=== PATIENT | female | born 1970 | race Caucasian/White ===

== ENCOUNTER 2017-03-22 16:44 | Emergency (ER) | payer MEDICARE, MEDICAID ==
--- NOTE | 2017-03-22 19:10 | ED Physician Documentation ---
PD HPI FEMALE - Stated complaint Stated Complaint: FEMALE - Chief complaint Chief Complaint: Abd Pain - History obtained from History obtained from: Patient - History of Present Illness Timing - onset: How many months ago (1) Timing - duration: Months (1) Pain level max: 0 Pain level max: 0 Associated symptoms: No: Fever, Vaginal bleeding Contributing factors: No: , Sexually active - Additional information Additional information: states vaginal itching for the past month. states foul odor recently. no vaginal discharge noted, but her underwear has been wet. no pain. Not sexually active for past 5 years. vaseline made it worse. 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 HEENT: Tonsil/Adenoidectomy - Present Medications Home Medications: Ambulatory Orders Medication Instructions Recorded Confirmed Zolpidem [Ambien] 5 mg PO HS 10/08/13 03/22/17 Eletriptan HBr [Relpax] 20 mg PO DAILY PRN #10 tablet 07/31/15 03/22/17 Metronidazole [Flagyl] 500 mg PO BID 7 Days 03/22/17 Nystatin 1 applic TP BID 14 Days 03/22/17 - Allergies Allergies/Adverse Reactions: Allergies Allergy/AdvReac Type Severity Reaction Status Date / Time No Known Drug Allergies Allergy Verified 03/22/17 16:53 - Social History Does the pt smoke?: No Smoking Status: Former smoker Does the pt drink ETOH?: No Does the pt have substance abuse?: No - Immunizations Immunizations are current?: Yes - POLST Patient has POLST: No PD ED PE NORMAL - Vitals Vital signs reviewed: Yes - General General: Alert and oriented X 3, No acute distress, Well developed/nourished - HEENT HEENT: PERRL, Moist mucous membranes - Neck Neck: Supple, no meningeal sign - Cardiac Cardiac: RRR, Strong equal pulses - Respiratory Respiratory: No respiratory distress, Clear bilaterally - Abdomen Abdomen: Soft, Non tender, Non distended, Other (multiple red, lesions in the skin folds of the L groin and pannus.white dischage. Satellite lesions present. 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 No adnexal tenderness. No masses. No purulent discharge) - Derm Derm: Warm and dry - Neuro Neuro: Alert and oriented X 3 - Psych Psych: Normal mood, Normal affect Results - Vitals Vitals: Vital Signs - 24 hr 03/22/17 03/22/17 16:50 19:41 Temperature 36.3 C L 36.4 C L Heart Rate 66 64 Respiratory 16 15 Rate Blood Pressure 153/100 H 148/84 H O2 Saturation 99 98 Oxygen O2 Source Room air - Labs Labs: Microbiology 03/22/17 19:25 Wet Prep - Final Genital - Vaginal 03/22/17 19:25 ERIC Preparation - Final Fluid - Vaginal Laboratory Tests 03/22/17 18:50 Urine Color YELLOW Urine Clarity CLOUDY Urine pH 7.0 Ur Specific [place] 1.015 Urine Protein NEGATIVE Urine Glucose (UA) NEGATIVE Urine Ketones TRACE Urine Occult Blood NEGATIVE Urine Nitrite NEGATIVE Urine Bilirubin NEGATIVE Urine Urobilinogen 1 (NORMAL) Ur Leukocyte Esterase NEGATIVE Urine RBC None Seen Urine WBC 0-3 Ur Squamous Epith Cells MOD Squamous H Amorphous Sediment Marked Urine Bacteria None Seen Ur Microscopic Review INDICATED Urine Culture Comments NOT INDICATED PD MEDICAL DECISION MAKING - ED course Complexity details: reviewed results, re-evaluated patient, considered differential, d/w patient ED course: Patient is a 47-year-old female who presents to the emergency department with what appears to be a candidal infection of her skin as well as a trichomonas vaginitis. Gonorrhea and Chlamydia testing was also sent. She was started on Flagyl and will place on nystatin powder at home as well. She is well-appearing , nontoxic. Afebrile. No evidence of PID. Patient counseled regarding signs and symptoms for which I believe and urgent re-evaluation would be necessary. Patient with good understanding of and agreement to plan and is comfortable going home at this time This document was made in part using voice recognition software. While efforts are made to proofread this document, sound alike and grammatical errors may occur. Departure - Departure Disposition: 01 Home, Self Care Clinical Impression: Trichomonas infection, Quynh infection of flexural skin Condition: Good Instructions: ED Candidiasis Cutaneous, ED Vaginitis Trichomonas Follow-Up: Bobo Ramirez DO [Primary Care Provider] - Within 1 week Prescriptions: Metronidazole [Flagyl] 500 mg PO BID 7 Days Nystatin 1 applic TP BID 14 Days Comments: Take all antibiotics until gone. Return if you worsen. Your blood pressure was elevated today on check in to the emergency department. This does not mean that you have hypertension, it is a common phenomenon to check into the emergency department and have elevated blood pressure. I recommend that you see your primary care physician within the week to have it rechecked when you're feeling better. Discharge Date/Time: 03/22/17 20:21
[2017-03-22 19:11] LABS: BILIRUBIN,URINE NEGATIVE (NEGATIVE)
[2017-03-22 19:15] LABS: UA w/ MICROSCOPIC CHARGE YES
[2017-03-22 19:17] LABS: UR CULTURE IF IND NOT INDICATED; WBC,URINE 0-3 /HPF (0-5)
[2017-03-22 19:41] VITALS: BP 148/84
[2017-03-22] MEDS ORDERED: metroNIDAZOLE 250 MG TABLET PO STA (20:09)
[2017-03-22] MEDS ORDERED: metroNIDAZOLE 250 MG TABLET PO ONE (20:16)
== END 2017-03-22 20:21 | disposition home or self-care (01) ==
LOC: ED 16:44
DX: A59.01 Trichomonal vulvovaginitis (principal); B37.2 Candidiasis of skin and nail; Z87.891 Personal history of nicotine dependence
CPT/HCPCS: 81001; 87210; 87220; 87491; 87591; 99283; A9270; 81003; 87086

== ENCOUNTER 2017-05-30 15:46 | Outpatient (CLI) | payer MEDICARE, MEDICAID ==
--- NOTE | 2017-05-31 12:56 | Mammography Report ---
DIGITAL SCREENING MAMMOGRAM: 05/30/2017 CLINICAL INDICATION: A 47-year-old for screening. COMPARISON: 09/2011 TECHNIQUE: Routine CC and MLO projections were obtained of the breasts. FINDINGS: The breasts demonstrate fatty replacement bilaterally. Coarse, typically benign calcifica tions are present. No suspicious masses, clustered microcalcifications, or regions of architectural distortion are identified. IMPRESSION: BENIGN FINDINGS. RECOMMENDATION: Routine annual screening unless otherwise clinically indicated. BIRADS CATEGORY 2 - BENIGN FINDINGS. STANDARD QUALIFYING STATEMENTS 1. This examination was reviewed with the aid of Computer-Aided Detection (CAD). 2. A negative or benign imaging report should not delay biopsy if clinically suspicious findings are present. Consider surgical consultation if warranted. More than 5% of cancers are not identified by i maging. 3. Dense breasts may obscure an underlying neoplasm. JOB #: [id number] EXT JOB #:[id number]
== END 2017-05-30 15:47 | disposition home or self-care (01) ==
LOC: DI.N 15:46
PROVIDERS: ATTEND Physician Assistant
DX: Z12.31 Encounter for screening mammogram for malignant neoplasm of breast (principal)
CPT/HCPCS: 77067

== ENCOUNTER 2017-08-15 09:26 | Emergency (ER) | payer MEDICARE, MEDICAID ==
--- NOTE | 2017-08-15 10:24 | ED Physician Documentation ---
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 HEENT: Tonsil/Adenoidectomy - Present Medications Home Medications: Ambulatory Orders Medication Instructions Recorded Confirmed Zolpidem [Ambien] 5 mg PO HS 10/08/13 08/15/17 Eletriptan HBr [Relpax] 20 mg PO DAILY PRN #10 tablet 07/31/15 08/15/17 Gabapentin 300 mg PO BID 08/15/17 08/15/17 Meloxicam 7.5 mg PO DAILY 08/15/17 08/15/17 - Allergies Allergies/Adverse Reactions: Allergies Allergy/AdvReac Type Severity Reaction Status Date / Time No Known Drug Allergies Allergy Verified 03/22/17 16:53 - Social History Does the pt smoke?: No Smoking Status: Never smoker Does the pt drink ETOH?: No Does the pt have substance abuse?: No - Immunizations Immunizations are current?: Yes - POLST Patient has POLST: No PD ED PE NORMAL - Vitals Vital signs reviewed: Yes - Extremities Extremities: Other (L elbow s deformity, mod TTP olecranon and jessica epicondyles, able to range but painful, MSV intact) Results - Vitals Vitals: Vital Signs - 24 hr 08/15/17 09:31 Temperature 36.7 C Heart Rate 78 Respiratory 18 Rate Blood Pressure 148/89 H O2 Saturation 97 Oxygen O2 Source Room air - Rads (name of study) elbow Radiology: See rad report (neg) Departure - Departure Disposition: Home, Self Care Clinical Impression: Left elbow contusion Qualifiers: Encounter type: initial encounter Qualified Code(s): S50.02XA - Contusion of left elbow, initial encounter Condition: Good Instructions: ED Contusion Elbow Comments: The xray is fine - no fracture. It is safe yo use you elbow Recommend tylenol and motrin as needed
--- NOTE | 2017-08-15 10:46 | XRAY Report ---
EXAM: LEFT ELBOW RADIOGRAPHY EXAM DATE: 08/15/2017 10:05 AM. CLINICAL HISTORY: Left elbow pain. Injury from fall. COMPARISON: None. TECHNIQUE: 4 views. FINDINGS: Bones: No fracture or bone lesion. Joints: No subluxation or joint effusion. Joint spaces are preserved. Soft Tissues: No focal abnormality identified. IMPRESSION: 1. No fracture or bony malalignment. [facility] Referring Provider Line: [phone] SITE ID: [id number]
--- NOTE | 2017-08-15 10:46 | XRAY Preliminary Report ---
Exam: XR ELBOW 3 VIEW LT IMPRESSION: 1. No fracture or bony malalignment. [facility] SITE ID: [id number]
[2017-08-15 11:16] VITALS: BP 138/92
== END 2017-08-15 11:15 | disposition home or self-care (01) ==
LOC: ED 09:26
DX: S50.02XA Contusion of left elbow, initial encounter (principal); W01.0XXA Fall on same level from slipping, tripping and stumbling without subsequent striking against object, initial encounter
CPT/HCPCS: 99283

== ENCOUNTER 2017-12-12 15:01 | Emergency (ER) | payer MEDICARE, MEDICAID ==
--- NOTE | 2017-12-12 15:30 | ED Physician Documentation ---
PD HPI HEADACHE - Stated complaint Stated Complaint: FALL/HEAD PAIN - Chief complaint Chief Complaint: Trauma Hd/Nk - History obtained from History obtained from: Patient - History of Present Illness Timing - onset: How many weeks ago (2) Worst headache ever?: Worst headache ever? (no) Location: Back Quality: Aching Associated symptoms: Nausea. No: Fever, Vomiting, Weakness, Numbness, Vision changes Contributing factors: Trauma (Fell backwards 2 weeks ago, hitting her head on the floor.) - Additional information Additional information: The patient is a 47-year-old female who presents with occipital headache, nausea , and fatigue. 2 weeks ago she fell backwards, hitting her head on the floor in a grocery store. She denies loss of consciousness, but has had tolerable occipital headache since that time. She had no nausea, until today. Today she has experienced nausea, increased headache, and fatigue. She denies fever, visual change, numbness or weakness. She denies history of similar symptoms in the past. Review of her medical record reveals past history of migraine headaches. Review of Systems Constitutional: reports: Fatigue. denies: Fever Eyes: denies: Decreased vision Ears: denies: Tinnitus/ringing Nose: denies: Congestion Throat: denies: Sore throat Cardiac: denies: Chest pain / pressure Respiratory: denies: Dyspnea, Cough GI: reports: Nausea. denies: Abdominal Pain, Vomiting, Diarrhea : denies: Dysuria Skin: denies: Rash Musculoskeletal: reports: Neck pain. denies: Extremity pain Neurologic: reports: Headache. 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 HEENT: Tonsil/Adenoidectomy - Present Medications Home Medications: Ambulatory Orders Medication Instructions Recorded Confirmed Zolpidem [Ambien] 5 mg PO HS 10/08/13 08/15/17 Eletriptan HBr [Relpax] 20 mg PO DAILY PRN #10 tablet 07/31/15 08/15/17 Gabapentin 300 mg PO BID 08/15/17 08/15/17 Meloxicam 7.5 mg PO DAILY 08/15/17 08/15/17 Promethazine [Phenergan] 25 - 50 mg PO Q6H PRN #10 tab 12/12/17 oxyCODONE/ACET 5/325 [Percocet 5 1 tab PO Q4-6H PRN #15 tablet 12/12/17 mg/325 mg] - Allergies Allergies/Adverse Reactions: Allergies Allergy/AdvReac Type Severity Reaction Status Date / Time No Known Drug Allergies Allergy Verified 12/12/17 15:10 - Social History Does the pt smoke?: No Smoking Status: Never smoker Does the pt drink ETOH?: No Does the pt have substance abuse?: No - Immunizations Immunizations are current?: Yes - POLST Patient has POLST: No PD ED PE NORMAL - Vitals Vital signs reviewed: Yes (normal) - General General: Alert and oriented X 3, Other (Obese, and appears fatigued.) - HEENT HEENT: PERRL, EOMI, Ears normal, Pharynx benign, Other (Slight swelling with associated tenderness to palpation of the occipital scalp.) - Neck Neck: Supple, no meningeal sign, No adenopathy, No JVD - Cardiac Cardiac: RRR, No murmur - Respiratory Respiratory: No respiratory distress, Clear bilaterally - Abdomen Abdomen: Soft, Non tender - Back Back: No CVA TTP, No spinal TTP - Derm Derm: No rash - Extremities Extremities: No edema, No calf tenderness / cord - Neuro Neuro: Alert and oriented X 3, No motor deficit, No sensory deficit Eye Opening: Spontaneous Motor: Obeys Commands Verbal: Oriented GCS Score: 15 Results - Vitals Vitals: Oxygen O2 Source Room air - Labs Labs: Laboratory Tests 12/12/17 12/12/17 12/12/17 15:46 15:46 16:00 WBC 9.2 RBC 4.39 Hgb 14.3 Hct 42.8 MCV 97.5 MCH 32.5 H MCHC 33.3 RDW 12.5 Plt Count 275 MPV 8.0 Neut # 6.8 H Lymph # 1.7 Coffee # 0.5 Eos # 0.2 Baso # 0.1 Absolute Nucleated RBC 0.00 Nucleated RBC % 0.1 Sodium 135 Potassium 3.9 Chloride 103 Carbon Dioxide 25 Anion Gap 7.0 BUN 9 Creatinine 0.6 Estimated GFR (MDRD) 108 Glucose 124 H Calcium 8.8 Total Bilirubin 0.5 AST 19 ALT 21 Alkaline Phosphatase 52 Total Protein 7.6 Albumin 4.0 Globulin 3.6 Albumin/Globulin Ratio 1.1 Lipase 21 L Urine Color YELLOW Urine Clarity HAZY Urine pH 7.0 Ur Specific [place] 1.020 Urine Protein NEGATIVE Urine Glucose (UA) NEGATIVE Urine Ketones TRACE Urine Occult Blood NEGATIVE Urine Nitrite NEGATIVE Urine Bilirubin NEGATIVE Urine Urobilinogen 0.2 (NORMAL) Ur Leukocyte Esterase TRACE H Urine RBC 0-5 Urine WBC 0-3 Ur Squamous Epith Cells MANY Squamous H Urine Bacteria Rare Urine Mucus Few Strands Ur Microscopic Review INDICATED Urine Culture Comments NOT INDICATED - Rads (name of study) CT head Radiology: Prelim report reviewed, EMP read contemporaneously, See rad report ( Normal) CT C-spine Radiology: Prelim report reviewed, EMP read contemporaneously, See rad report ( Negative) PD MEDICAL DECISION MAKING - ED course Complexity details: reviewed old records, reviewed results, re-evaluated patient , considered differential, d/w patient, d/w family ED course: The patient's presentation is most consistent with posttraumatic headache. CT scan of her head and neck revealed no intracranial or cervical spine abnormality. Her presentation does not suggest meningitis, temporal arteritis, or pseudotumor cerebri. Treatment in the emergency department included administration of Imitrex 6 mg subcutaneously, and Zofran 4 mg ODT. This did not relieve her symptoms. Subsequently an IV was placed and further treatment included administration of normal saline 1 L IV, Zofran 4 mg IV, and fentanyl 50 mcg IV 2. Her nausea completely resolved, and her headache improved. She is being discharged with a prescription for Phenergan and for Percocet, 15 tablets. I discussed with her and her son results of the imaging study, outpatient treatment and follow-up, as well as potentially worrisome signs or symptoms that should prompt reevaluation in the emergency department. Departure - Departure Disposition: Home, Self Care Clinical Impression: Post-traumatic headache Qualifiers: Headache chronicity pattern: unspecified pattern Intractability: not intractable Qualified Code(s): G44.309 - Post-traumatic headache, unspecified, not intractable Condition: Stable Instructions: ED Cephalgia Unspecified Follow-Up: Tahmina Hayden PA-C [Primary Care Provider] - Prescriptions: oxyCODONE/ACET 5/325 [Percocet 5 mg/325 mg] 1 tab PO Q4-6H PRN #15 tablet PRN Reason: Pain Promethazine [Phenergan] 25 - 50 mg PO Q6H PRN #10 tab PRN Reason: Nausea / Vomiting Comments: Drink plenty of fluids. You can use Phenergan as prescribed if needed for nausea. He can use Percocet as prescribed as needed for pain. Follow up with your primary physician within 1-2 weeks. Call to schedule an appointment. Return to the emergency department if you develop increasing headache, persistent vomiting, or otherwise worsening symptoms. Forms: Activity restrictions Discharge Date/Time: 12/12/17 18:23
[2017-12-12 15:53] LABS: BASOPHILS # (AUTO) 0.1 10^3/uL (0.0-0.1); BASOPHILS % (AUTO) 0.6 %; EOSINOPHILS # (AUTO) 0.2 10^3/uL (0.0-0.7); EOSINOPHILS % (AUTO) 2.2 %; HGB - HEMOGLOBIN 14.3 g/dL (12.0-16.0); LYMPHOCYTES # (AUTO) 1.7 10^3/uL (1.5-3.5); MEAN CORPUSCULAR HEMOGLOBIN 32.5 pg (27.0-31.0); MEAN CORPUSCULAR HGB CONC 33.3 g/dL (32.0-36.0); MEAN CORPUSCULAR VOLUME 97.5 fL (81.0-99.0); MONOCYTES # (AUTO) 0.5 10^3/uL (0.0-1.0); MONOCYTES % (AUTO) 5.4 %; NEUTROPHILS # (AUTO) 6.8 10^3/uL (1.5-6.6); NEUTROPHILS % (AUTO) 73.8 %; PLT - PLATELET COUNT 275 10^3/uL (130-450); RED BLOOD COUNT 4.39 10^6/uL (4.20-5.40); RED CELL DISTRIBUTION WIDTH 12.5 % (12.0-15.0); WHITE BLOOD COUNT 9.2 x10^3/uL (4.8-10.8)
[2017-12-12 16:06] LABS: ALBUMIN/GLOBULIN RATIO 1.1 (1.0-2.2); BILIRUBIN,TOTAL 0.5 mg/dL (0.2-1.0); CALCIUM 8.8 mg/dL (8.5-10.3); CREATININE 0.6 mg/dL (0.4-1.0); TOTAL PROTEIN 7.6 g/dL (6.7-8.2)
--- NOTE | 2017-12-12 16:12 | CT Preliminary Report ---
Exam: CT CERVICAL SPINE W/O IMPRESSION: Head CT: Negative. Cervical Spine CT: Negative. [facility] SITE ID: [id number]
--- NOTE | 2017-12-12 16:12 | CT Preliminary Report ---
Exam: CT HEAD W/O IMPRESSION: Head CT: Negative. Cervical Spine CT: Negative. [facility] SITE ID: [id number]
--- NOTE | 2017-12-12 16:12 | CT Report ---
EXAM: CT HEAD. CT SCAN OF THE CERVICAL SPINE. EXAM DATE: 12/12/2017 03:36 PM. CLINICAL HISTORY: Headache and neck pain after fall two weeks ago. COMPARISON: CT head 07/06/2009. TECHNIQUE: Noncontrast axial sections through the head and cervical spine. Reformats: Coronal of the head, coronal and sagittal of the cervical spine. In accordance with CT protocol optimization, one or more of the following dose reduction techniques w ere utilized for this exam: automated exposure control, adjustment of mA and/or KV based on patient s ize, or use of iterative reconstructive technique. FINDINGS CT HEAD: Parenchyma: No intraparenchymal hemorrhage. No evidence of mass, midline shift, or CT findings of inf arction. Cantu-white differentiation is distinct. Extraaxial Spaces: Normal for age. No subdural or epidural collections identified. Ventricles: Normal in size and position. Sinuses and orbits: Imaged paranasal sinuses, orbits, and mastoids show no significant abnormality. Bones: No evidence of fracture or calvarial defect. Other: None. FINDINGS CT CERVICAL SPINE: Alignment: Normal. No scoliosis or spondylolisthesis. Bones: No fracture or bone lesion. Interspace Levels/Facets: No significant disk height loss or degenerative facet disease at any level. No significant foraminal stenosis at any level. Spinal Canal: Severe streak artifact limits evaluation from C6-T2. No severe canal stenosis demonstra rei at any level on lateral view. There is a small posterior disk osteophyte complex at C5-C6 causing minimal to mild canal stenosis just left of midline. Musculature: Normal. No fatty atrophy. Other: The paravertebral and prevertebral soft tissues are unremarkable. The lung apices are clear. IMPRESSION: Head CT: Negative. Cervical Spine CT: Negative. [facility] Referring Provider Line: [phone] SITE ID: [id number]
[2017-12-12 16:13] LABS: BILIRUBIN,URINE NEGATIVE (NEGATIVE); GLUCOSE, URINE (UA) NEGATIVE (NEGATIVE); KETONES,URINE (UA) TRACE mg/dL (NEGATIVE); LEUKOCYTE ESTERASE, URINE TRACE (NEGATIVE); NITRITE,URINE NEGATIVE (NEGATIVE); OCCULT BLOOD,URINE NEGATIVE (NEGATIVE); PROTEIN,URINE NEGATIVE (NEGATIVE); UROBILINOGEN,URINE 0.2 (NORMAL) E.U./dL (NORMAL)
[2017-12-12] MEDS ORDERED: SUMAtriptan 6 MG/0.5 ML VIAL SUBQ STA (16:16)
[2017-12-12 16:18] LABS: CLARITY,URINE HAZY (CLEAR)
[2017-12-12] MEDS ORDERED: ONDANSETRON ODT 4 MG TABLET TL STA (16:21)
[2017-12-12 16:25] LABS: BACTERIA,URINE Rare /HPF (None Seen); MUCUS,URINE Few Strands; RBC,URINE 0-5 /HPF (0-5); SQUAMOUS EPITHELIAL CELL,UR MANY Squamous (<= Few)
[2017-12-12] MEDS ORDERED: SODIUM CHLORIDE 0.9% 1,000 ML IV ONE (16:58)
[2017-12-12] MEDS ORDERED: fentaNYL 100 MCG/2 ML VIAL IVP STA ×2 (16:59→17:50)
[2017-12-12] MEDS ORDERED: ONDANSETRON 4 MG/2 ML VIAL IVP STA (16:59)
[2017-12-12 18:10] VITALS: BP 136/73
== END 2017-12-12 18:23 | disposition home or self-care (01) ==
LOC: ED 15:01
DX: G44.309 Post-traumatic headache, unspecified, not intractable (principal)
CPT/HCPCS: 36415; 70450; 72125; 80053; 81001; 83690; 85025; 96372; 96374; 96376; 99283; 99284; Q0162; 81003; 87086

== ENCOUNTER 2020-06-15 15:18 | Outpatient (CLI) | payer MEDICAID ==
--- NOTE | 2020-06-15 16:08 | XRAY Report ---
PROCEDURE: Knee 3 View LT INDICATIONS: KNEE JOINT PAIN,LEFT TECHNIQUE: 3 views of the left knee(s) were acquired. COMPARISON: None. FINDINGS: Bones: No fractures or dislocations. No suspicious bony lesions. Mild tricompartmental osteoarthri tis. Soft tissues: No joint effusion. No suspicious soft tissue calcifications. IMPRESSION: 1. Mild tricompartmental osteoarthritis. 2. No fracture. No acute osseous lesion. If there is continued clinical concern for pathology, then advanced imaging (CT, MR, bone scan) should be considered for further evaluation. Reviewed by: Amie Finn MD, PhD on 06/15/2020 4:07 PM PST Approved by: Amie Finn MD, PhD on 06/15/2020 4:07 PM PST Station ID: [id number]
== END 2020-06-15 15:19 | disposition home or self-care (01) ==
LOC: DI 15:18
PROVIDERS: ATTEND Physician Assistant
DX: M17.12 Unilateral primary osteoarthritis, left knee (principal)

== ENCOUNTER 2020-07-10 08:33 | Outpatient (CLI) | payer MEDICAID ==
[2020-07-10 09:05] LABS: BASOPHILS % (AUTO) 0.5 %; EOSINOPHILS # (AUTO) 0.3 10^3/uL (0.0-0.7); EOSINOPHILS % (AUTO) 3.7 %; HGB - HEMOGLOBIN 13.8 g/dL (12.0-16.0); LYMPHOCYTES # (AUTO) 1.9 10^3/uL (1.5-3.5); LYMPHOCYTES % (AUTO) 22.1 %; MEAN CORPUSCULAR HGB CONC 33.1 g/dL (32.0-36.0); MEAN CORPUSCULAR VOLUME 99.8 fL (81.0-99.0); MEAN PLATELET VOLUME 10.2 fL (7.9-10.8); MONOCYTES # (AUTO) 0.6 10^3/uL (0.0-1.0); MONOCYTES % (AUTO) 7.1 %; NEUTROPHILS # (AUTO) 5.6 10^3/uL (1.5-6.6); NEUTROPHILS % (AUTO) 66.2 %; PLT - PLATELET COUNT 263 10^3/uL (130-450); RED BLOOD COUNT 4.18 10^6/uL (4.20-5.40); RED CELL DISTRIBUTION WIDTH 12.1 % (12.0-15.0); WHITE BLOOD COUNT 8.4 x10^3/uL (4.8-10.8)
[2020-07-10 09:23] LABS: ALBUMIN 3.7 g/dL (3.2-5.5); ALBUMIN/GLOBULIN RATIO 1.1 (1.0-2.2); ALKALINE PHOSPHATASE 48 IU/L (42-121); ALT ALANINE AMINOTRANSFERASE 16 IU/L (10-60); AST ASPARTATE AMINOTRANSFERASE 15 IU/L (10-42); BILIRUBIN,TOTAL 0.4 mg/dL (0.2-1.0); BUN - BLOOD UREA NITROGEN 12 mg/dL (6-20); CARBON DIOXIDE - CO2 25 mmol/L (21-32); CHLORIDE 101 mmol/L (101-111); CHOLESTEROL 171 mg/dL; CREATININE 0.7 mg/dL (0.4-1.0); GLUCOSE 117 mg/dL (70-100); HDL CHOLESTEROL 57 mg/dL; LDL CHOLESTEROL,CALCULATED 83 mg/dL; LDL/HDL RATIO 1.5 (<4.4); SODIUM 138 mmol/L (135-145); TOTAL PROTEIN 7.2 g/dL (6.7-8.2); VLDL CHOLESTEROL 31 mg/dL
== END 2020-07-10 08:34 | disposition home or self-care (01) ==
LOC: LAB 08:33
PROVIDERS: ATTEND Physician Assistant
DX: Z00.00 Encounter for general adult medical examination without abnormal findings (principal); G47.30 Sleep apnea, unspecified
CPT/HCPCS: 36415; 80053; 80061; 83721; 84443; 85025

== ENCOUNTER 2021-11-08 08:43 | Outpatient (CLI) | payer BC ==
[2021-11-08 12:12] LABS: BASOPHILS % (AUTO) 0.6 %; EOSINOPHILS # (AUTO) 0.3 10^3/uL (0.0-0.7); HCT - HEMATOCRIT 41.3 % (37.0-47.0); HGB - HEMOGLOBIN 13.8 g/dL (12.0-16.0); LYMPHOCYTES % (AUTO) 29.1 %; MEAN CORPUSCULAR HEMOGLOBIN 33.1 pg (27.0-31.0); MEAN CORPUSCULAR HGB CONC 33.4 g/dL (32.0-36.0); MEAN PLATELET VOLUME 10.1 fL (7.9-10.8); MONOCYTES # (AUTO) 0.5 10^3/uL (0.0-1.0); MONOCYTES % (AUTO) 7.8 %; NEUTROPHILS % (AUTO) 58.4 %; PLT - PLATELET COUNT 306 10^3/uL (130-450); RED BLOOD COUNT 4.17 10^6/uL (4.20-5.40); WHITE BLOOD COUNT 6.9 x10^3/uL (4.8-10.8)
[2021-11-08 12:25] LABS: THYROID STIMULATING HORMONE 1.25 uIU/mL (0.34-5.60)
[2021-11-08 12:26] LABS: ALBUMIN 3.9 g/dL (3.2-5.5); ALBUMIN/GLOBULIN RATIO 1.1 (1.0-2.2); ALKALINE PHOSPHATASE 46 IU/L (42-121); ALT ALANINE AMINOTRANSFERASE 18 IU/L (10-60); AST ASPARTATE AMINOTRANSFERASE 18 IU/L (10-42); BILIRUBIN,TOTAL 0.6 mg/dL (0.2-1.0); BUN - BLOOD UREA NITROGEN 12 mg/dL (6-20); CALCIUM 9.1 mg/dL (8.5-10.3); CARBON DIOXIDE - CO2 28 mmol/L (21-32); CHLORIDE 101 mmol/L (101-111); CHOL/HDL RATIO 2.8 (<4.4); CHOLESTEROL 182 mg/dL; CREATININE 0.7 mg/dL (0.4-1.0); GFR - MDRD 89 (>89); GLUCOSE 110 mg/dL (70-100); HDL CHOLESTEROL 66 mg/dL; LDL CHOLESTEROL,CALCULATED 97 mg/dL; LDL/HDL RATIO 1.5 (<4.4); POTASSIUM 4.3 mmol/L (3.5-5.0); SODIUM 137 mmol/L (135-145); TOTAL PROTEIN 7.6 g/dL (6.7-8.2); TRIGLYCERIDES 95 mg/dL; VLDL CHOLESTEROL 19 mg/dL
== END 2021-11-08 08:44 | disposition home or self-care (01) ==
LOC: LAB.N 08:43
PROVIDERS: ATTEND Registered Nurse
DX: Z13.228 Encounter for screening for other metabolic disorders (principal); Z13.220 Encounter for screening for lipoid disorders; Z13.29 Encounter for screening for other suspected endocrine disorder; Z13.0 Encounter for screening for diseases of the blood and blood-forming organs and certain disorders involving the immune mechanism
CPT/HCPCS: 36415; 80053; 80061; 83721; 84443; 85025

== ENCOUNTER 2022-05-22 10:58 | Outpatient (CLI) | payer BC | END 2022-05-22 10:59 | disposition critical access hospital (66) | LOC: EMS 10:58 | DX: R10.84 Generalized abdominal pain (principal); R10.817 Generalized abdominal tenderness; R07.89 Other chest pain; M25.512 Pain in left shoulder; M25.511 Pain in right shoulder | CPT/HCPCS: A0425; A0429 ==

== ENCOUNTER 2022-05-22 11:15 | Emergency (ER) | payer BC ==
[2022-05-22 11:44] LABS: BASOPHILS % (AUTO) 0.5 %; EOSINOPHILS # (AUTO) 0.3 10^3/uL (0.0-0.7); EOSINOPHILS % (AUTO) 3.4 %; HCT - HEMATOCRIT 41.1 % (37.0-47.0); LYMPHOCYTES # (AUTO) 2.2 10^3/uL (1.5-3.5); MEAN CORPUSCULAR HEMOGLOBIN 33.3 pg (27.0-31.0); MEAN CORPUSCULAR HGB CONC 34.1 g/dL (32.0-36.0); MEAN CORPUSCULAR VOLUME 97.6 fL (81.0-99.0); MEAN PLATELET VOLUME 9.8 fL (7.9-10.8); MONOCYTES # (AUTO) 0.6 10^3/uL (0.0-1.0); MONOCYTES % (AUTO) 6.8 %; NEUTROPHILS # (AUTO) 5.4 10^3/uL (1.5-6.6); NEUTROPHILS % (AUTO) 63.1 %; PLT - PLATELET COUNT 280 10^3/uL (130-450); RED BLOOD COUNT 4.21 10^6/uL (4.20-5.40); RED CELL DISTRIBUTION WIDTH 11.6 % (12.0-15.0); WHITE BLOOD COUNT 8.5 x10^3/uL (4.8-10.8)
--- NOTE | 2022-05-22 11:53 | XRAY Report ---
PROCEDURE: Chest 1 View X-Ray INDICATIONS: Chest pain TECHNIQUE: One view of the chest was acquired. COMPARISON: None FINDINGS: Surgical changes and devices: None. Lungs and pleura: No pleural effusions or pneumothorax. Lungs are clear. Mediastinum: Mediastinal contours appear normal. Heart size is normal. Bones and chest wall: No suspicious bony lesions. Overlying soft tissues appear unremarkable. IMPRESSION: No acute cardiopulmonary process demonstrated radiographically. Reviewed by: Tanmay Jennings MD on 05/22/2022 11:51 AM PDT Approved by: Tanmay Jennings MD on 05/22/2022 11:51 AM PDT Station ID: [id number]
[2022-05-22] MEDS ORDERED: HYDROmorphone 1 MG/ML CARPUJECT IVP STA ×3 (12:03→14:42)
--- NOTE | 2022-05-22 12:16 | ED Physician Documentation ---
PD HPI ABD PAIN - Stated complaint Stated Complaint: ABD PX - Chief complaint Chief Complaint: Cardiac - History obtained from History obtained from: Patient - History of Present Illness Timing - onset: How many hours ago (2) Timing - duration: Hours (2) Pain level max: 10 Pain level now: 10 Quality: Cramping, Aching Location: All over / everywhere Radiation: No: Chest, , Lower back, Left flank, Left shoulder, Right flank, Right shoulder, Upper back Associated symptoms: No: Nausea, Vomiting, Hematemesis, Diarrhea, Constipation, Melena, Hematochezia, Dysuria - Additional information Additional information: Patient is a 52-year-old female who presents to the emergency department complaining of sudden onset abdominal pain about 2 hours prior to arrival. She states that she was at work when this occurred. Has had no nausea or vomiting. Described as diffuse, crampy, aching. Has not taken anything for this. The pain is nonradiating. Nothing makes it better or worse. No fevers. No nausea. No vomiting. No diarrhea. No constipation. She has had a cholecystectomy in the past as well as a left-sided oophorectomy. Review of Systems Ten Systems: 10 systems reviewed and negative Constitutional: denies: Fever, Chills Respiratory: denies: Cough GI: denies: Nausea, Vomiting, Diarrhea : denies: Now EGA Skin: denies: Rash Musculoskeletal: denies: Neck pain, Back pain Neurologic: denies: Headache PD PAST MEDICAL HISTORY - Past Medical History Past Medical History: Yes Cardiovascular: None Respiratory: None Neuro: None Endocrine/Autoimmune: None GI: Cholelithiasis NOTCH GRINDER: None : None HEENT: None Psych: None Musculoskeletal: None Other Past Medical History: PCOS - Past Surgical History Past Surgical History: Yes General: Cholecystectomy /NOTCH GRINDER: Tubal ligation HEENT: Tonsil/Adenoidectomy - Present Medications Home Medications: Ambulatory Orders Medication Instructions Recorded Confirmed Eletriptan HBr [Relpax] 20 mg PO DAILY PRN #10 tablet 07/31/15 08/15/17 Gabapentin 300 mg PO BID 08/15/17 05/22/22 HYDROcod/ACETAM 5/325 [[place] 5/325] 1 - 2 ea PO Q6H PRN #12 tablet 05/22/22 Losartan Potassium 25 mg PO DAILY 05/22/22 05/22/22 Zolpidem Tartrate [Ambien] 10 mg PO HS 05/22/22 05/22/22 - Allergies Allergies/Adverse Reactions: Allergies Allergy/AdvReac Type Severity Reaction Status Date / Time No Known Drug Allergies Allergy Verified 12/12/17 15:10 - Social History Does the pt smoke?: No Smoking Status: Never smoker Does the pt drink ETOH?: No Does the pt have substance abuse?: No - Immunizations Immunizations are current?: Yes - POLST Patient has POLST: No PD ED PE NORMAL - Vitals Vital signs reviewed: Yes - General General: Alert and oriented X 3, No acute distress - HEENT HEENT: PERRL, Moist mucous membranes - Neck Neck: Supple, no meningeal sign - Cardiac Cardiac: RRR, Strong equal pulses - Respiratory Respiratory: No respiratory distress, Clear bilaterally - Abdomen Abdomen: Soft, Non distended, Other (Diffuse tenderness to palpation. No peritoneal signs.) - Back Back: No CVA TTP - Derm Derm: Warm and dry - Extremities Extremities: No edema - Neuro Neuro: Alert and oriented X 3 - Psych Psych: Normal mood, Normal affect Results - Vitals Vitals: Vital Signs - 24 hr 05/22/22 05/22/22 05/22/22 11:26 11:30 13:30 Temperature 37.2 C 36.4 C L Heart Rate 72 67 70 Respiratory 14 16 14 Rate Blood Pressure 152/101 H 152/101 H 151/78 H O2 Saturation 98 98 97 05/22/22 05/22/22 05/22/22 15:12 16:17 17:00 Temperature Heart Rate 78 55 L 61 Respiratory 15 14 16 Rate Blood Pressure 157/91 H 150/71 H 126/60 O2 Saturation 95 98 99 Oxygen O2 Source Room air - Labs Labs: Laboratory Tests 05/22/22 05/22/22 05/22/22 11:37 11:37 11:37 WBC 8.5 RBC 4.21 Hgb 14.0 Hct 41.1 MCV 97.6 MCH 33.3 H MCHC 34.1 RDW 11.6 L Plt Count 280 MPV 9.8 Neut # (Auto) 5.4 Lymph # (Auto) 2.2 [place] # (Auto) 0.6 Eos # (Auto) 0.3 Baso # (Auto) 0.0 Absolute Nucleated RBC 0.00 Nucleated RBC % 0.0 Sodium 138 Potassium 4.0 Chloride 101 Carbon Dioxide 27 Anion Gap 10.0 BUN 15 Creatinine 0.7 Estimated GFR (MDRD) 89 Glucose 123 H Calcium 9.6 Total Bilirubin 0.4 AST 19 ALT 16 Alkaline Phosphatase 50 Troponin I High Sens 2.3 Total Protein 8.0 Albumin 4.3 Globulin 3.7 Albumin/Globulin Ratio 1.2 Lipase 40 - Rads (name of study) CT abdomen pelvis Radiology: Final report received, EMP read contemporaneously, See rad report PD MEDICAL DECISION MAKING - ED course Complexity details: reviewed results, re-evaluated patient, considered differential, d/w patient, d/w network relations consultant ED course: 52-year-old female presents to the emergency department abdominal pain. Cause initially was unclear, but on CT scan there appears to be a obstructed ventral hernia. This was reduced in the emergency department, the patient continued to have pain after reduction. Was given pain medication but is still complaining of continued abdominal pain. Therefore general surgery was consulted, Dr. Horton, saw the patient and recommends a repeat CT to ensure resolution of the hernia. Repeat CT does show resolution of the hernia and patient's pain is improved. We will prescribe pain medication for home and have her follow-up with her doctor for further care. Recommend that she have her hernia repaired as an outpatient. Patient counseled regarding signs and symptoms for which I believe and urgent re-evaluation would be necessary. Patient with good understanding of and agreement to plan and is comfortable going home at this time This document was made in part using voice recognition software. While efforts are made to proofread this document, sound alike and grammatical errors may occur. IMPRESSION: 1. Small bowel obstruction associated with ventral hernia. Small bowel trapped in ventral hernia associated with proximal dilated bowel measuring up to 2.6 cm. No evidence of abscess or perforation IMPRESSION: Improved periumbilical hernia, which now contains only fat. The previously seen small bowel obstruction has resolved. Departure - Departure Disposition: 01 Home, Self Care Clinical Impression: Umbilical hernia Qualifiers: Obstruction and gangrene presence: without obstruction or gangrene Qualified Code(s): K42.9 - Umbilical hernia without obstruction or gangrene Condition: Good Instructions: Hernia Follow-Up: your,doctor in 1 week [Other] Prescriptions: HYDROcod/ACETAM 5/325 [[place] 5/325] 1 - 2 ea PO Q6H PRN #12 tablet PRN Reason: Pain Comments: Your prescriptions were sent to [facility] in [place]. Please follow-up with your doctor for further care. Return if you worsen. You should follow-up with your doctor for a referral to a surgeon to have your umbilical hernia repaired. Discharge Date/Time: 05/22/22 17:23
[2022-05-22 12:25] LABS: ALBUMIN 4.3 g/dL (3.2-5.5); ALBUMIN/GLOBULIN RATIO 1.2 (1.0-2.2); BILIRUBIN,TOTAL 0.4 mg/dL (0.2-1.0); CALCIUM 9.6 mg/dL (8.5-10.3); CREATININE 0.7 mg/dL (0.4-1.0)
[2022-05-22] MEDS ORDERED: iohexoL-300 100 ML VIAL ONE (13:06)
--- NOTE | 2022-05-22 14:11 | CT Report ---
PROCEDURE: CT abdomen pelvis INDICATIONS: diffuse abd pain, sudden onset CONTRAST: IV CONTRAST: Isovue 300 ml: 100 PO CONTRAST: *NO PO CONTRAST TECHNIQUE: After the administration of contrast, 5 mm thick sections acquired from the diaphragms to the sym physis. 5 mm thick coronal and sagittal reformats were acquired. For radiation dose reduction, the following was used: automated exposure control, adjustment of mA and/or kV according to patient size . COMPARISON: None. FINDINGS: Image quality: Excellent. ABDOMEN: Lung bases: Lung bases are clear. Heart size is normal. Solid organs: Liver and spleen are normal in size and enhancement. Gallbladder surgically absent. Biliary system is non dilated. Pancreas enhances normally. No adrenal nodules. Kidneys demonstrate normal size and enhancement, without hydronephrosis. 3 mm nonobstructive left renal calculus presen t. Peritoneum and bowel: There is a small midline ventral hernia containing a knuckle of small bowel re sulting in bowel obstruction. Proximal small bowel dilated measures up to 2.6 cm, and the bowel dista l to the hernia is completely decompressed. No evidence of abscess or perforation Bowel loops demonstrate normal wall thickness and caliber. No free fluid or air. Nodes and vessels: No retroperitoneal or mesenteric adenopathy by size criteria. Aorta and inferior vena cava are normal in size. Miscellaneous: Surgical clips noted in the right hemipelvis PELVIS: Genitourinary: Bladder wall thickness is normal. Miscellaneous: No inguinal hernias or adenopathy. Bones: No suspicious bony lesions. No vertebral body compression fractures. IMPRESSION: 1. Small bowel obstruction associated with ventral hernia. Small bowel trapped in ventral hernia asso ciated with proximal dilated bowel measuring up to 2.6 cm. No evidence of abscess or perforation Reviewed by: Brown Pena MD on 05/22/2022 1:09 PM MARIELY Approved by: Brown Pena MD on 05/22/2022 1:09 PM AKDT Station ID: [id number]
[2022-05-22] MEDS ORDERED: HYOSCYAMINE SL 0.125 MG TABLET SL STA (14:42)
[2022-05-22] MEDS ORDERED: KETOROLAC 30 MG/ML VIAL IVP STA (16:09)
--- NOTE | 2022-05-22 17:09 | CT Report ---
PROCEDURE: Abdomen/Pelvis WO INDICATIONS: abd pain s/p hernia reduction, cont pain TECHNIQUE: Noncontrast 5 mm thick sections acquired from the diaphragms to the symphysis. 5 mm coronal and sagi ttal reformats were then performed. For radiation dose reduction, the following was used: automated exposure control, adjustment of mA and/or kV according to patient size. COMPARISON: Prior abdomen pelvis CT performed earlier in the day FINDINGS: Image quality: Excellent. ABDOMEN: Lung bases: Lung bases are clear. Heart size is normal. Solid organs: Liver and spleen are normal in size. Gallbladder has been removed. Pancreas is silverio l in contours. No adrenal nodules. Exiting contrast can be seen within the renal collecting systems and within the ureters. No pallavi hyd ronephrosis is seen. No perinephric fat stranding is seen. Peritoneum and bowel: Unenhanced bowel loops demonstrate normal wall thickness and caliber. No free fluid or air. A normal appendix is incidentally noted. Nodes and vessels: No retroperitoneal or mesenteric adenopathy by size criteria. Aorta and inferior vena cava are normal in caliber. Miscellaneous: There is a fat-containing peribuccal hernia seen, which now contains only fat. PELVIS: Genitourinary: Bladder wall thickness is normal. The uterus demonstrates an unremarkable appearance for age. No adnexal masses are seen. Miscellaneous: No inguinal hernias or adenopathy. Bones: No suspicious bony lesions. No vertebral body compression fractures. Focal L5-S1 degenerati ve change is seen. Milder degenerative changes are seen elsewhere. IMPRESSION: Improved periumbilical hernia, which now contains only fat. The previously seen small bowel obstruction has resolved. Incidental note is made of: Cholecystectomy Focal L5-S1 degenerative change Reviewed by: Alex Vieira MD on 05/22/2022 4:08 PM MARIELY Approved by: Alex Vieira MD on 05/22/2022 4:08 PM AKARY Station ID: [id number]
[2022-05-22 17:17] VITALS: BP 126/60
[2022-05-22] MEDS ORDERED: iohexoL-300 100 ML VIAL IVP ONE (17:19)
== END 2022-05-22 17:23 | disposition home or self-care (01) ==
LOC: EDUNIT# → ED 11:15
DX: K43.6 Other and unspecified ventral hernia with obstruction, without gangrene (principal); K42.9 Umbilical hernia without obstruction or gangrene; E28.2 Polycystic ovarian syndrome; Z90.49 Acquired absence of other specified parts of digestive tract
CPT/HCPCS: 36415; 71045; 74176; 74177; 80053; 83690; 84484; 85025; 93005; 96374; 96375; 96376; 99282; 99284; A9270; J1170; Q9967

== ENCOUNTER 2022-06-21 11:50 | Day surgery (SDC) | payer BC ==
[~2022-06-21 11:50] MED LIST: CEFAZOLIN 2G/50ML 0.9% NS 2 GM/50 ML BAG IV ONE
[2022-06-21] MEDS ORDERED: LACTATED RINGERS 1,000 ML IV ONE ×2 (12:39→16:26)
[2022-06-21] MEDS ORDERED: BUPIVACAINE 0.25% PF 10 ML VIAL ONE (13:37)
[2022-06-21] MEDS ORDERED: BUPIVACAINE 0.25% PF 30 ML VIAL SUBQ ONE (13:44)
[2022-06-21] MEDS ORDERED: ePHEDrine 50 MG/ML VIAL IVP PRN (13:48)
[2022-06-21] MEDS ORDERED: METOCLOPRAMIDE 10 MG/2 ML VIAL IVP PRN (13:48)
[2022-06-21] MEDS ORDERED: HYDROmorphone 0.5 MG/0.5 ML SYRINGE IVP PRN (13:48)
[2022-06-21] MEDS ORDERED: NALOXONE 0.4 MG/ML VIAL IVP PRN (13:48)
[2022-06-21] MEDS ORDERED: MORPHINE 2 MG/ML CARPUJECT IVP PRN (13:48)
[2022-06-21] MEDS ORDERED: ONDANSETRON 4 MG/2 ML VIAL IVP PRN ×2 (13:48→15:55)
[2022-06-21] MEDS ORDERED: ATROPINE ABBOJECT 1 MG/10 ML SYRINGE IVP PRN (13:48)
--- NOTE | 2022-06-21 13:48 | ANESTHESIA ---
Pre-Anesthesia VS, & Labs - Diagnosis incisional hernia - Procedure incisional hernia repair with mesh Vital Signs: Temp Pulse Resp BP Pulse Ox O2 Flow Rate 36.6 C 53 L 16 166/88 H 99 06/21/22 12:29 06/21/22 12:29 06/21/22 12:29 06/21/22 12:29 06/21/22 12:29 Height: 5 ft Weight (kg): 110.8 kg Body Mass Index: 47.7 BMI Classification: Morbidly Obese - NPO >8 hours - Is Patient ?: No - Lab Results Current Lab Results: Laboratory Tests 06/21/22 12:31: POC Whole Bld Glucose 81 Lab results reviewed: Yes Home Medications and Allergies Home Medications: Ambulatory Orders Prazosin [Minipress] 2 mg PO QPM 06/19/22 metFORMIN [Glucophage] 500 mg PO DAILY 06/19/22 Gabapentin 300 mg PO TID 08/15/17 Losartan Potassium 25 mg PO DAILY 05/22/22 Zolpidem Tartrate [Ambien] 10 mg PO HS PRN 05/22/22 Prazosin [Minipress] 2 mg PO QPM 06/19/22 metFORMIN [Glucophage] 500 mg PO DAILY 06/19/22 Allergies/Adverse Reactions: Allergies Allergy/AdvReac Type Severity Reaction Status Date / Time No Known Drug Allergies Allergy Verified 12/12/17 15:10 Anes History & Medical History - Anesthetic History Anesthesia Complications: reports: No previous complications Family history of Anesthesia Complications: Denies Family history of Malignant Hyperthermia: Denies - Medical History Cardiovascular: reports: Hypertension Pulmonary: reports: Sleep apnea Gastrointestinal: reports: Cholelithiasis Urinary: reports: Kidney stones Neuro: reports: None Musculoskeletal: reports: None Endocrine/Autoimmune: reports: None Blood Disorders: reports: None Skin: reports: None Smoking Status: Never smoker - Surgical History General: reports: Cholecystectomy Eyes Ears Nose Throat (EENT): reports: Tonsil/Adenoidectomy Urologic: reports: Ureterolithotomy (stones) Gynecologic: reports: Tubal ligation Exam General: Alert, Oriented x3, Cooperative Dental: Loose/Frag, Dentures full Upper, Partials Upper, Partials Lower, Poor dentition Mouth Openin Fingerbreadth Neck Mobility: Normal Mallampati classification: II Respiratory: Lungs clear, Normal breath sounds, No respiratory distress Cardiovascular: Regular rate Neurological: Normal speech Mental/Cognitive Status: Alert/Oriented X3, Normal for patient Cognitive Status: Within normal limits Plan Anesthesia Type: General Consent for Procedure(s) Verified and Reviewed: Yes Code Status: Attempt Resuscitation ASA classification: 2-Mild systemic disease Is this case an emergency?: No
[2022-06-21] MEDS ORDERED: LACTATED RINGERS 1,000 ML IV SCH (14:00)
[2022-06-21] MEDS ORDERED: MIDAZOLAM 2 MG/2 ML VIAL ONE (14:10)
[2022-06-21] MEDS ORDERED: PROPOFOL 200 MG/20 ML VIAL IVP ONE (14:10)
[2022-06-21] MEDS ORDERED: fentaNYL 100 MCG/2 ML VIAL ONE ×2 (14:10→16:02)
[2022-06-21] MEDS ORDERED: ROCURONIUM 50 MG/5 ML VIAL ONE (14:11)
[2022-06-21] MEDS ORDERED: LIDOCAINE-PF 2% 10 ML AMP SUBQ ONE (14:14)
[2022-06-21] MEDS ORDERED: SUGAMMADEX 200 MG/2 ML VIAL IVP ONE (15:01)
[2022-06-21] MEDS ORDERED: DEXAMETHASONE 4 MG/ML VIAL ONE (15:04)
[2022-06-21] MEDS ORDERED: ONDANSETRON 4 MG/2 ML VIAL ONE (15:04)
[2022-06-21] MEDS ORDERED: KETOROLAC 30 MG/ML VIAL ONE (15:04)
[2022-06-21] MEDS ORDERED: LACTATED RINGERS 200 ML IV ONE (15:51)
[2022-06-21] MEDS ORDERED: HYDROcod/ACETAM 5/325 MG TABLET PO PRN (15:55)
[2022-06-21] MEDS: fentaNYL 100 MCG/2 ML VIAL IVP PRN ×3 (16:00→16:38)
--- NOTE | 2022-06-21 16:01 | OPERATIVE REPORT ---
Operative Report - General Procedure Date: 06/21/22 Planned Procedure: open repair incisional hernia Pre-Op Diagnosis: incisional hernia Procedure Performed: open repair incisional hernia with mesh Post Op Diagnosis: incisional hernia - Procedure Note Primary Surgeon: ruchi sweet Anesthesia Technique: General ET tube, Local Pathology: none Estimated Blood Loss (mL): 2 Drain/Tube Type: Other (none) Indications: recent small bowel obstruction from hernia Findings: 2.5 cm fascial defect 1.5 x 2.5 in mesh Complications: none - Other Other Information/Narrative: The patient was properly identified brought to the operating room and placed in supine position. Sequential compression devices were placed. General anesthesia was induced. The patient was prepped and draped in a sterile fashion and given preoperative antibiotics. Local anesthetic was given throughout the procedure. A supraumbilical incision was made and extended left lateral of the umbilicus. Dissection proceeded sharply. Subcutaneous tissue was mobilized away from the fascial defect by 2 to 3 cm in all directions. Umbilical skin was sharply excised away from the hernia sac or peritoneum. The peritoneum was then carefully released from the fascial defect edge with cutting current cautery. A preperitoneal space was developed for mesh placement. Polypropylene mesh was cut to size approximately 1.5 x 2.5 inches and placed preperitoneal. The mesh was secured with 12 interrupted 0 Ethibond sutures. The mesh lay in good position without tension. Subcutaneous tissue was reapproximated with interrupted 2-0 Vicryl suture. Umbilical skin was tacked back down to fascia with interrupted 2-0 Vicryl suture. Buried interrupted subdermal 3-0 Vicryl sutures were then placed. Skin was closed with a running 4-0 Monocryl subcuticular suture. Dressing was applied. Patient tolerated the procedure the procedure well was awakened and brought to recovery in good condition.
[2022-06-21] MEDS ORDERED: HYDROmorphone 0.5 MG/0.5 ML SYRINGE ONE (16:11)
--- NOTE | 2022-06-21 16:11 | ANESTHESIA POST OP EVALUATION ---
Anesthesia Post Eval - Post Anesthesia Eval Vitals: Last Vital Signs Temp 36.5 C 06/21/22 16:00 Pulse 61 06/21/22 16:00 Resp 13 06/21/22 16:00 BP 152/87 H 06/21/22 16:00 Pulse Ox 98 06/21/22 16:00 O2 Flow Rate CV Function Including HR & BP: Stable Pain Control: Satisfactory Nausea & Vomiting: Negative Mental Status: Baseline Respiratory Status: Airway Patent Hydration Status: Satisfactory Anesthesia Complications: None
[2022-06-21] MEDS ORDERED: ACETAMINOPHEN 1,000 MG/100 ML 1,000 MG/100 ML BAG IV ONE (16:39)
[2022-06-21 19:24] VITALS: BP 139/80
== END 2022-06-21 21:00 | disposition home or self-care (01) ==
LOC: SDS 11:50 → MS2 15:43 → SDS 21:00
PROVIDERS: ATTEND Surgery
DX: K43.2 Incisional hernia without obstruction or gangrene (principal); E66.01 Morbid (severe) obesity due to excess calories; Z68.42 Body mass index [BMI] 45.0-49.9, adult; G47.30 Sleep apnea, unspecified; Z79.84 Long term (current) use of oral hypoglycemic drugs; Z90.49 Acquired absence of other specified parts of digestive tract; Z98.51 Tubal ligation status
CPT/HCPCS: 49560; 49568; A9270; C1781; J0131; J0690; J1170; J7120

== ENCOUNTER 2023-01-17 12:30 | Outpatient (CLI) | payer BC | END 2023-01-17 12:45 | disposition home or self-care (01) | LOC: LAB.N 12:30 | PROVIDERS: ATTEND Registered Nurse | DX: N23 Unspecified renal colic (principal); R31.9 Hematuria, unspecified; R11.2 Nausea with vomiting, unspecified | CPT/HCPCS: 87086 ==

== ENCOUNTER 2023-01-18 15:33 | Outpatient (CLI) | payer BC ==
--- NOTE | 2023-01-18 16:40 | CT Report ---
PROCEDURE: ABDOMEN/PELVIS WO INDICATIONS: HEMATURIA, FLANK PAIN, RENAL COLIC, NAUSEA VOMIT TECHNIQUE: A CT scan of the abdomen and pelvis was performed without the use of intravenous contrast. Images we re recorded and evaluated at appropriate window settings. Reformats: coronal and sagittal. For radiat ion dose reduction, the following was used: automated exposure control, adjustment of mA and/or kV ac cording to patient size. COMPARISON: None. FINDINGS: Image quality: Excellent. Lung bases and heart: Unremarkable. Liver: No solid mass. Gallbladder and biliary tree: Surgically absent. No biliary dilation, accounting for post-cholecystec lali state. Spleen: No splenomegaly. Pancreas: No pancreatic ductal dilation. Adrenals: No adrenal nodule. Kidneys and ureters: Punctate nonobstructing left-sided stone. Mild left sided hydronephroureter. Bowel and peritoneum: No bowel distension. No pathologic free fluid. Lymph nodes: No central or retroperitoneal adenopathy. Vessels: No infrarenal aortic aneurysm. PELVIS Reproductive organs: Unremarkable. Bladder: No wall thickness, accounting for underdistention. Pelvic lymph nodes: No pelvic adenopathy by size criteria. Bones: No aggressive osseous abnormality. Other: No significant ventral or inguinal hernia. IMPRESSION: Mild left-sided hydronephroureter, without obstructing stone visualized. Differential includes recent ly passed stone versus infection. Punctate left-sided nonobstructing nephrolithiasis. Reviewed by: Dennys Palacios on 01/18/2023 4:39 PM PDT Approved by: Dennys Palacios on 01/18/2023 4:39 PM PDT Station ID: [id number]
== END 2023-01-18 15:34 | disposition home or self-care (01) ==
LOC: DI 15:33
PROVIDERS: ATTEND Registered Nurse
DX: N13.30 Unspecified hydronephrosis (principal); N20.0 Calculus of kidney

== ENCOUNTER 2023-05-12 07:56 | Outpatient (CLI) | payer BC ==
[2023-05-12 08:27] LABS: BASOPHILS % (AUTO) 0.5 %; EOSINOPHILS # (AUTO) 0.3 10^3/uL (0.0-0.7); EOSINOPHILS % (AUTO) 3.7 %; HCT - HEMATOCRIT 42.1 % (37.0-47.0); HGB - HEMOGLOBIN 13.8 g/dL (12.0-16.0); LYMPHOCYTES # (AUTO) 1.9 10^3/uL (1.5-3.5); LYMPHOCYTES % (AUTO) 23.6 %; MEAN CORPUSCULAR HEMOGLOBIN 33.1 pg (27.0-31.0); MEAN CORPUSCULAR HGB CONC 32.8 g/dL (32.0-36.0); MEAN PLATELET VOLUME 10.1 fL (7.9-10.8); MONOCYTES # (AUTO) 0.5 10^3/uL (0.0-1.0); MONOCYTES % (AUTO) 6.5 %; NEUTROPHILS # (AUTO) 5.3 10^3/uL (1.5-6.6); NEUTROPHILS % (AUTO) 65.6 %; PLT - PLATELET COUNT 274 10^3/uL (130-450); RED BLOOD COUNT 4.17 10^6/uL (4.20-5.40); RED CELL DISTRIBUTION WIDTH 11.9 % (12.0-15.0); WHITE BLOOD COUNT 8.1 x10^3/uL (4.8-10.8)
[2023-05-12 08:36] LABS: ALBUMIN 4.1 g/dL (3.2-5.5); ALBUMIN/GLOBULIN RATIO 1.3 (1.0-2.2); ALKALINE PHOSPHATASE 55 IU/L (42-121); ALT ALANINE AMINOTRANSFERASE 12 IU/L (10-60); AST ASPARTATE AMINOTRANSFERASE 11 IU/L (10-42); BILIRUBIN,TOTAL 0.4 mg/dL (0.2-1.0); BUN - BLOOD UREA NITROGEN 9 mg/dL (6-20); CALCIUM 9.2 mg/dL (8.5-10.3); CARBON DIOXIDE - CO2 24 mmol/L (21-32); CHLORIDE 109 mmol/L (101-111); CHOL/HDL RATIO 3.3 (<4.4); CHOLESTEROL 193 mg/dL; CREATININE 0.7 mg/dL (0.6-1.3); GFR - MDRD 88 (>89); GLUCOSE 106 mg/dL (74-104); HDL CHOLESTEROL 58 mg/dL; LDL CHOLESTEROL,CALCULATED 94 mg/dL; LDL/HDL RATIO 1.6 (<4.4); POTASSIUM 4.2 mmol/L (3.5-4.5); SODIUM 138 mmol/L (135-145); TOTAL PROTEIN 7.3 g/dL (6.4-8.9); TRIGLYCERIDES 206 mg/dL (48-352); VLDL CHOLESTEROL 41 mg/dL
[2023-05-12 08:52] LABS: THYROID STIMULATING HORMONE 1.17 uIU/mL (0.34-5.60)
[2023-05-12 12:04] LABS: ESTIMATED AVERAGE GLUCOSE 108 mg/dL (70-100); HEMOGLOBIN A1c% 5.4 % (4.27-6.07)
== END 2023-05-12 07:57 | disposition home or self-care (01) ==
LOC: LAB 07:56
PROVIDERS: ATTEND Registered Nurse
DX: Z79.899 Other long term (current) drug therapy (principal); Z13.220 Encounter for screening for lipoid disorders; R73.9 Hyperglycemia, unspecified; Z13.29 Encounter for screening for other suspected endocrine disorder
CPT/HCPCS: 36415; 80053; 80061; 83036; 83721; 84443; 85025

== ENCOUNTER 2023-07-20 12:30 | Emergency (ER) | payer BC ==
[2023-07-20 13:04] LABS: BASOPHILS # (AUTO) 0.1 10^3/uL (0.0-0.1); BASOPHILS % (AUTO) 0.6 %; EOSINOPHILS # (AUTO) 0.2 10^3/uL (0.0-0.7); EOSINOPHILS % (AUTO) 2.3 %; HCT - HEMATOCRIT 40.1 % (37.0-47.0); HGB - HEMOGLOBIN 13.1 g/dL (12.0-16.0); LYMPHOCYTES # (AUTO) 2.6 10^3/uL (1.5-3.5); LYMPHOCYTES % (AUTO) 25.7 %; MEAN CORPUSCULAR HEMOGLOBIN 33.2 pg (27.0-31.0); MEAN CORPUSCULAR HGB CONC 32.7 g/dL (32.0-36.0); MEAN CORPUSCULAR VOLUME 101.5 fL (81.0-99.0); MEAN PLATELET VOLUME 9.8 fL (7.9-10.8); MONOCYTES # (AUTO) 0.7 10^3/uL (0.0-1.0); MONOCYTES % (AUTO) 6.6 %; NEUTROPHILS # (AUTO) 6.5 10^3/uL (1.5-6.6); NEUTROPHILS % (AUTO) 64.6 %; PLT - PLATELET COUNT 301 10^3/uL (130-450); RED BLOOD COUNT 3.95 10^6/uL (4.20-5.40); RED CELL DISTRIBUTION WIDTH 11.7 % (12.0-15.0)
[2023-07-20 13:17] LABS: ALBUMIN 4.5 g/dL (3.2-5.5); ALBUMIN/GLOBULIN RATIO 1.4 (1.0-2.2); BILIRUBIN,TOTAL 0.3 mg/dL (0.2-1.0); CALCIUM 9.7 mg/dL (8.5-10.3); CREATININE 0.7 mg/dL (0.6-1.3); POTASSIUM 3.4 mmol/L (3.5-4.5); TOTAL PROTEIN 7.8 g/dL (6.4-8.9)
--- NOTE | 2023-07-20 16:03 | ED Physician Documentation ---
History of Present Illness - Stated complaint Stated Complaint: ,WEAKNESS,LETHARGIC - Chief complaint Chief Complaint: Abd Pain - History obtained from History obtained from: Patient - Additonal information Additional information: 53-year-old woman who has not been sexually active in about 20 years has perimenopausal symptoms. She missed menses and now has a heavy menses for nearly 2 weeks. Her physician advised her to come here, presuming to rule out anemia. PD PAST MEDICAL HISTORY - Past Medical History Past Medical History: Yes Cardiovascular: Hypertension Respiratory: Sleep apnea Neuro: None Endocrine/Autoimmune: None GI: Cholelithiasis CRYSTAL REPORT DEVELOPER: None : Kidney stones HEENT: Chronic vision loss Psych: Anxiety Musculoskeletal: None Derm: None - Past Surgical History Past Surgical History: Yes General: Cholecystectomy /CRYSTAL REPORT DEVELOPER: Tubal ligation HEENT: Tonsil/Adenoidectomy - Present Medications Home Medications: Ambulatory Orders Medication Instructions Recorded Confirmed Gabapentin 300 mg PO TID 08/15/17 06/21/22 Losartan Potassium 25 mg PO DAILY 05/22/22 06/21/22 Zolpidem Tartrate [Ambien] 10 mg PO HS PRN 05/22/22 06/21/22 Prazosin [Minipress] 2 mg PO QPM 06/19/22 06/21/22 metFORMIN [Glucophage] 500 mg PO DAILY 06/19/22 06/21/22 HYDROcod/ACETAM 5/325 [[place] 5/325] 1 each PO Q6H PRN #30 tablet 06/21/22 - Allergies Allergies/Adverse Reactions: Allergies Allergy/AdvReac Type Severity Reaction Status Date / Time No Known Drug Allergies Allergy Verified 12/12/17 15:10 - Social History Does the pt smoke?: No Smoking Status: Never smoker Does the pt drink ETOH?: No Does the pt have substance abuse?: No - Immunizations Immunizations are current?: Yes - POLST Patient has POLST: No PD ED PE NORMAL - Vitals Vital signs reviewed: Yes - General General: Alert and oriented X 3, No acute distress - Abdomen Abdomen: Normal bowel sounds, Soft, Non tender - Neuro Neuro: Alert and oriented X 3, Normal speech - Psych Psych: Normal mood, Normal affect Results - Vitals Vitals: Vital Signs - 24 hr 07/20/23 12:41 Temperature 36.8 C Heart Rate 86 Respiratory 15 Rate Blood Pressure 149/99 H O2 Saturation 98 Oxygen O2 Source Room air - Labs Labs: Laboratory Tests 07/20/23 07/20/23 12:58 12:58 WBC 10.0 RBC 3.95 L Hgb 13.1 Hct 40.1 MCV 101.5 H MCH 33.2 H MCHC 32.7 RDW 11.7 L Plt Count 301 MPV 9.8 Neut # (Auto) 6.5 Lymph # (Auto) 2.6 [place] # (Auto) 0.7 Eos # (Auto) 0.2 Baso # (Auto) 0.1 Absolute Nucleated RBC 0.00 Nucleated RBC % 0.0 Sodium 137 Potassium 3.4 L Chloride 105 Carbon Dioxide 25 Anion Gap 7.0 BUN 13 Creatinine 0.7 Estimated GFR (MDRD) 88 L Glucose 93 Calcium 9.7 Total Bilirubin 0.3 AST 13 ALT 11 Alkaline Phosphatase 60 Total Protein 7.8 Albumin 4.5 Globulin 3.3 Albumin/Globulin Ratio 1.4 Lipase 34 PD Medical Decision Making - ED course ED course: Labs done and she is not anemic with hemoglobin of 13 and crit of 40. CMP unremarkable. Discussed with her that she is not losing a significant amount of blood at least not medically significant. Departure - Departure Disposition: Home, Self Care Clinical Impression: Metrorrhagia Condition: Good Record reviewed to determine appropriate education?: Yes Instructions: ED Bleed Irregular Vaginal [facility]: [facility] [Provider Group] Comments: Reasonable to follow-up with gynecology if symptoms are persistent. Return for new or worsening symptoms. You are not at all anemic today.
[2023-07-20 16:05] LABS: BILIRUBIN,URINE NEGATIVE (NEGATIVE); GLUCOSE, URINE (UA) NEGATIVE (NEGATIVE); KETONES,URINE (UA) NEGATIVE (NEGATIVE); LEUKOCYTE ESTERASE, URINE NEGATIVE (NEGATIVE); NITRITE,URINE NEGATIVE (NEGATIVE); OCCULT BLOOD,URINE LARGE (NEGATIVE); PROTEIN,URINE NEGATIVE (NEGATIVE); UROBILINOGEN,URINE 0.2 (NORMAL) E.U./dL (NORMAL)
[2023-07-20 16:07] LABS: CLARITY,URINE CLEAR (CLEAR)
[2023-07-20 16:08] LABS: HCG UR QUAL NEGATIVE
[2023-07-20 16:14] LABS: BACTERIA,URINE Few /HPF (None Seen); SQUAMOUS EPITHELIAL CELL,UR FEW Squamous (<= Few); WBC,URINE 0-3 /HPF (0-5)
[2023-07-20 16:15] VITALS: BP 160/102; O2SAT 99
== END 2023-07-20 16:10 | disposition home or self-care (01) ==
LOC: ED 12:30
DX: N92.1 Excessive and frequent menstruation with irregular cycle (principal)
CPT/HCPCS: 36415; 80053; 81001; 81003; 81025; 83690; 85025; 87086; 99283

== ENCOUNTER 2023-07-29 01:02 | Emergency (ER) | payer BC ==
[2023-07-29 01:48] LABS: BASOPHILS # (AUTO) 0.1 10^3/uL (0.0-0.1); BASOPHILS % (AUTO) 0.5 %; EOSINOPHILS # (AUTO) 0.4 10^3/uL (0.0-0.7); EOSINOPHILS % (AUTO) 3.5 %; HCT - HEMATOCRIT 38.6 % (37.0-47.0); HGB - HEMOGLOBIN 12.6 g/dL (12.0-16.0); LYMPHOCYTES # (AUTO) 2.7 10^3/uL (1.5-3.5); LYMPHOCYTES % (AUTO) 27.5 %; MEAN CORPUSCULAR HEMOGLOBIN 32.3 pg (27.0-31.0); MEAN CORPUSCULAR HGB CONC 32.6 g/dL (32.0-36.0); MEAN PLATELET VOLUME 10.2 fL (7.9-10.8); MONOCYTES # (AUTO) 0.7 10^3/uL (0.0-1.0); NEUTROPHILS # (AUTO) 6.1 10^3/uL (1.5-6.6); NEUTROPHILS % (AUTO) 61.2 %; PLT - PLATELET COUNT 268 10^3/uL (130-450)
[2023-07-29 01:48] LABS: HCG UR QUAL NEGATIVE
[2023-07-29 02:01] LABS: ALBUMIN 4.2 g/dL (3.2-5.5); ALBUMIN/GLOBULIN RATIO 1.3 (1.0-2.2); BILIRUBIN,TOTAL 0.3 mg/dL (0.2-1.0); CALCIUM 9.6 mg/dL (8.5-10.3); CREATININE 0.8 mg/dL (0.6-1.3); POTASSIUM 3.4 mmol/L (3.5-4.5); TOTAL PROTEIN 7.4 g/dL (6.4-8.9)
--- NOTE | 2023-07-29 04:24 | ED Physician Documentation ---
PD HPI ABD PAIN - Stated complaint Stated Complaint: LOWER RT SIDE BACK PX - Chief complaint Chief Complaint: Abd Pain - History obtained from History obtained from: Patient - Additional information Additional information: HPI from patient. 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 She has had associated nausea and vomiting. There are no exacerbating or ameliorating factors, and there was no inciting event. Patient says her symptoms are similar to previous episodes of renal colic. Denies fever, denies dysuria. Review of Systems GI: reports: Abdominal Pain (right flank), Nausea, Vomiting. 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 : Kidney stones HEENT: Chronic vision loss Psych: Anxiety Musculoskeletal: None Derm: None - Past Surgical History Past Surgical History: Yes General: Cholecystectomy /LAND LEASE INFORMATION CLERK: Tubal ligation HEENT: Tonsil/Adenoidectomy - Present Medications Home Medications: Ambulatory Orders Medication Instructions Recorded Confirmed Gabapentin 300 mg PO TID PRN 08/15/17 07/29/23 Losartan Potassium 25 mg PO DAILY 05/22/22 07/29/23 Zolpidem Tartrate [Ambien] 10 mg PO HS PRN 05/22/22 07/29/23 Prazosin [Minipress] 2 mg PO QPM 06/19/22 07/29/23 metFORMIN [Glucophage] 500 mg PO DAILY 06/19/22 07/29/23 Promethazine [Phenergan] 25 mg PO Q6H PRN #10 tab 07/29/23 Topiramate 50 mg PO BID 07/29/23 07/29/23 oxyCODONE [Roxicodone] 5 - 10 mg PO Q6H PRN #14 tablet 07/29/23 - Allergies Allergies/Adverse Reactions: Allergies Allergy/AdvReac Type Severity Reaction Status Date / Time No Known Drug Allergies Allergy Verified 07/29/23 01:15 - Social History Does the pt smoke?: No Smoking Status: Never smoker Does the pt drink ETOH?: No Does the pt have substance abuse?: No - Immunizations Immunizations are current?: Yes - POLST Patient has POLST: No PD ED PE NORMAL - Vitals Vital signs reviewed: Yes - General General: Alert and oriented X 3, Well developed/nourished, Other (appears to be in painful distress) - Cardiac Cardiac: RRR, No murmur - Respiratory Respiratory: No respiratory distress, Clear bilaterally - Abdomen Abdomen: Soft, Non tender, Non distended - Back Back: No CVA TTP Results - Vitals Vitals: Oxygen O2 Source Room air - Labs Labs: Laboratory Tests 07/29/23 07/29/23 07/29/23 01:30 01:30 01:37 WBC 10.0 RBC 3.90 L Hgb 12.6 Hct 38.6 MCV 99.0 MCH 32.3 H MCHC 32.6 RDW 12.0 Plt Count 268 MPV 10.2 Neut # (Auto) 6.1 Lymph # (Auto) 2.7 [place] # (Auto) 0.7 Eos # (Auto) 0.4 Baso # (Auto) 0.1 Absolute Nucleated RBC 0.00 Nucleated RBC % 0.0 Sodium Potassium Chloride Carbon Dioxide Anion Gap BUN Creatinine Estimated GFR (MDRD) Glucose Calcium Total Bilirubin AST ALT Alkaline Phosphatase Total Protein Albumin Globulin Albumin/Globulin Ratio Lipase Urine Color YELLOW Urine Clarity CLEAR Urine pH 5.5 Ur Specific [place] >=1.030 H Urine Protein NEGATIVE Urine Glucose (UA) NEGATIVE Urine Ketones NEGATIVE Urine Occult Blood MODERATE H Urine Nitrite NEGATIVE Urine Bilirubin NEGATIVE Urine Urobilinogen 0.2 (NORMAL) Ur Leukocyte Esterase NEGATIVE Urine RBC 6-10 H Urine WBC 0-3 Ur Squamous Epith Cells MOD Squamous H Urine Bacteria Rare Urine Mucus Few Strands Ur Microscopic Review INDICATED Urine Culture Comments NOT INDICATED Urine HCG, Qual NEGATIVE 07/29/23 01:37 WBC RBC Hgb Hct MCV MCH MCHC RDW Plt Count MPV Neut # (Auto) Lymph # (Auto) [place] # (Auto) Eos # (Auto) Baso # (Auto) Absolute Nucleated RBC Nucleated RBC % Sodium 136 Potassium 3.4 L Chloride 105 Carbon Dioxide 23 Anion Gap 8.0 BUN 16 Creatinine 0.8 Estimated GFR (MDRD) 76 L Glucose 152 H Calcium 9.6 Total Bilirubin 0.3 AST 13 ALT 11 Alkaline Phosphatase 51 Total Protein 7.4 Albumin 4.2 Globulin 3.2 Albumin/Globulin Ratio 1.3 Lipase 40 Urine Color Urine Clarity Urine pH Ur Specific [place] Urine Protein Urine Glucose (UA) Urine Ketones Urine Occult Blood Urine Nitrite Urine Bilirubin Urine Urobilinogen Ur Leukocyte Esterase Urine RBC Urine WBC Ur Squamous Epith Cells Urine Bacteria Urine Mucus Ur Microscopic Review Urine Culture Comments Urine HCG, Qual - Rads (name of study) CT A/P without contrast Relevant Findings:: Prelim report reviewed, See rad report PD Medical Decision Making - ED course Complexity details: reviewed results, re-evaluated patient, considered differential, d/w patient ED course: CBC and basic metabolic profile are without concerning findings (incidental note of minimal hypokalemia with potassium 3.4). Urine hCG negative. Hematuria on urinalysis with 6-10 RBC/hpf, no white blood cells, nitrites, no bacteria to suggest UTI. CT A/P Shows mild to moderate right hydronephrosis without hydroureter; no obstructing calculi, although bilateral intrarenal calculi are noted. Given her symptoms, the CT findings, and hematuria, most likely explanation is a recently passed renal calculus. Of note, patient had similar findings on CT 6 months ago except that the hydronephrosis was left-sided. Patient is given 1 L normal saline IV, 4 mg IV Zofran, and 1 mg IV Dilaudid. For ongoing symptoms the Dilaudid and Zofran are repeated (same doses). On reevaluation, I discussed results of tests with her as well as the suspected diagnosis. She is in no apparent distress on reevaluation, although she is complaining of the pain continuing to wax and wane and thus she is given 10 mg p.o. oxycodone prior to discharge. Return precautions are discussed and I advised her to follow-up with her primary care provider, next available appointment. I have electronically submitted prescriptions for Phenergan and oxycodone to patient's pharmacy of choice. Departure - Departure Disposition: 01 Home, Self Care Clinical Impression: Renal colic on right side Condition: Good Instructions: ED Flank Pain Uncertain Cause Follow-Up: Millie Milligan ARNP [Primary Care Provider] - Prescriptions: Promethazine [Phenergan] 25 mg PO Q6H PRN #10 tab PRN Reason: Nausea / Vomiting oxyCODONE [Roxicodone] 5 - 10 mg PO Q6H PRN #14 tablet PRN Reason: Pain >8 Comments: The CT scan of your abdomen and pelvis shows swelling of the right kidney but no evidence of obstruction such as from a kidney stone (there are small kidney stones in both kidneys, but these are not causing blockage and are therefore incidental findings). The urinalysis shows blood in the urine. The most likely explanation for your symptoms and these findings is a kidney stone that was blocking but recently passed. At this time, there are no further tests nor treatments that are needed from an emergency or inpatient basis. I have gilma ctronically submitted prescriptions for oxycodone (narcotic/opiate pain medication) and Phenergan (anti-nausea medication) to the [facility] pharmacy in [place]. Contact your primary care provider this morning when the office opens to arrange for follow-up/reevaluation appointment, ideally within the next 2 to 3 days. I am prescribing a short course of narcotic pain medication for you. These are potentially dangerous and addictive medications that should be used carefully. These medications may constipate you. Take an ubic-lef-pfqusof stool softener (docusate) twice daily with plenty of water while taking these medications. If you go 24 hours without a bowel movement, take ziqu-sij-uqduuen miralax, per package instructions. Do not drink or drive while taking these medications. If you received narcotic or sedating medications while in the emergency department, do not drive for 24 hours. Store this medication in a safe, secure place and out of reach of children. It is a violation of federal law to give or sell this medication to another person or to use in a manner other than prescribed. The ED will not refill narcotic prescriptions, including prescriptions lost or stolen. To dispose of unwanted medications: 1. [facility] at [address] in [place] has a medication drop box. They accept prescription medications (in pill form) Saturday through Saturday 9:00 a.m. to 5:00 p.m. 2. [facility] [employer] accepts prescription medications (in pill form only) for disposal year round. Call for more information. 3. Contact the [facility] for the next [facility] sponsored prescription drug collection event. , [phone], or [phone]; Forms: PCP List Discharge Date/Time: 07/29/23 09:32
[2023-07-29] MEDS ORDERED: ONDANSETRON 4 MG/2 ML VIAL IVP STA ×2 (04:31→06:45)
[2023-07-29] MEDS ORDERED: SODIUM CHLORIDE 0.9% 1,000 ML IV STA (04:31)
[2023-07-29] MEDS ORDERED: HYDROmorphone 1 MG/ML CARPUJECT IVP STA ×2 (04:31→06:45)
[2023-07-29 05:20] LABS: BILIRUBIN,URINE NEGATIVE (NEGATIVE); GLUCOSE, URINE (UA) NEGATIVE (NEGATIVE); KETONES,URINE (UA) NEGATIVE (NEGATIVE); LEUKOCYTE ESTERASE, URINE NEGATIVE (NEGATIVE); NITRITE,URINE NEGATIVE (NEGATIVE); OCCULT BLOOD,URINE MODERATE (NEGATIVE); PH,URINE 5.5 PH (5.0-7.5); PROTEIN,URINE NEGATIVE (NEGATIVE); UROBILINOGEN,URINE 0.2 (NORMAL) E.U./dL (NORMAL)
[2023-07-29 05:36] LABS: BACTERIA,URINE Rare /HPF (None Seen); CLARITY,URINE CLEAR (CLEAR); MUCUS,URINE Few Strands; SQUAMOUS EPITHELIAL CELL,UR MOD Squamous (<= Few); WBC,URINE 0-3 /HPF (0-5)
--- NOTE | 2023-07-29 08:10 | CT Report ---
PROCEDURE: ABDOMEN/PELVIS WO INDICATIONS: right flank pain TECHNIQUE: A CT scan of the abdomen and pelvis was performed without the use of intravenous contrast. Images we re recorded and evaluated at appropriate window settings. Reformats: coronal and sagittal. For radiat ion dose reduction, the following was used: automated exposure control, adjustment of mA and/or kV ac cording to patient size. COMPARISON: None. FINDINGS: Image quality: Good Lower chest: Basal scarring/atelectasis. No pleural effusions. Solid organs: Liver is unremarkable on this noncontrast evaluation. The gallbladder is absent. Mild f atty atrophy of the pancreatic head. No pathologic dilation of the biliary system or pancreatic duct. No splenomegaly. No adrenal nodules. There is a 2 to 3 mm nonobstructing stone in the left lower pole. No left hydronephrosis. There is mi ld to moderate right hydronephrosis that appears new compared to January. A nonobstructing 1 mm calcifie d stone is seen in the right lower pole. No obstructing stone identified in the ureter itself. The ri ght kidney appears edematous. No calcified bladder stone. Vessels and lymph nodes: No pathologic lymph nodes by size criteria. No abdominal aortic aneurysm. Bowel and peritoneum: No evidence of small bowel obstruction or pathologic ascites. The appendix is n ondilated. Body wall: Unremarkable. Possible mild scarring at the umbilicus. Pelvis: Reproductive organs not well evaluated on CT, clips at the right adnexa again seen. Small fol licle or cystic lesion around the right adnexa also present. Bones: No acute or suspicious osseous abnormality. IMPRESSION: Mild to moderate right hydronephrosis without significant ureter dilation. No obstructing calcified s tone identified. Differential considerations include infection, recently passed stone, or UPJ obstruc tion. Nonobstructing intrarenal calculi are seen. Other findings as above. Agree with preliminary report. Reviewed by: Arturo Grimaldo MD on 07/29/2023 8:08 AM [facility] Approved by: Arturo Grimaldo MD on 07/29/2023 8:08 AM PST Station ID: [id number]
[2023-07-29] MEDS ORDERED: oxyCODONE 5 MG TABLET PO STA (08:46)
[2023-07-29] MEDS ORDERED: oxyCODONE 5 MG TABLET ONE (09:12)
[2023-07-29 09:36] VITALS: BP 126/82; O2SAT 94
== END 2023-07-29 09:32 | disposition home or self-care (01) ==
LOC: ED 01:02
DX: N23 Unspecified renal colic (principal); N13.30 Unspecified hydronephrosis; I10 Essential (primary) hypertension; Z87.442 Personal history of urinary calculi; Z79.899 Other long term (current) drug therapy; Z79.84 Long term (current) use of oral hypoglycemic drugs
CPT/HCPCS: 36415; 74176; 80053; 81001; 81025; 83690; 85025; 96374; 96375; 96376; 99284; A9270; J1170; 81003; 87086

== ENCOUNTER 2023-08-11 09:48 | Outpatient (CLI) | payer BC ==
[2023-08-11 10:08] LABS: HCT - HEMATOCRIT 39.8 % (37.0-47.0); MEAN CORPUSCULAR HEMOGLOBIN 32.7 pg (27.0-31.0); MEAN CORPUSCULAR HGB CONC 32.7 g/dL (32.0-36.0); RED BLOOD COUNT 3.98 10^6/uL (4.20-5.40); WHITE BLOOD COUNT 6.9 x10^3/uL (4.8-10.8)
[2023-08-11 10:46] LABS: THYROID STIMULATING HORMONE 1.56 uIU/mL (0.34-5.60)
[2023-08-12 14:52] LABS: ESTIMATED AVERAGE GLUCOSE 111 mg/dL (70-100); HEMOGLOBIN A1c% 5.5 % (4.27-6.07)
== END 2023-08-11 09:49 | disposition home or self-care (01) ==
LOC: LAB 09:48
PROVIDERS: ATTEND Obstetrics & Gynecology
DX: N92.6 Irregular menstruation, unspecified (principal); Z12.11 Encounter for screening for malignant neoplasm of colon; R73.9 Hyperglycemia, unspecified; L68.0 Hirsutism
CPT/HCPCS: 36415; 81599; 82670; 83001; 83036; 83525; 84270; 84402; 84403; 84443; 85027

== ENCOUNTER 2023-08-16 08:00 | Outpatient (CLI) | payer SELFPAY ==
[2023-08-16 17:58] LABS: FECAL OCCULT BLOOD (FIT) NEGATIVE (NEGATIVE)
== END 2023-08-16 23:59 | disposition home or self-care (01) ==
LOC: LAB.R 08:00
PROVIDERS: ATTEND Obstetrics & Gynecology
DX: Z12.11 Encounter for screening for malignant neoplasm of colon (principal)
CPT/HCPCS: 82274

== ENCOUNTER 2023-08-23 19:02 | Outpatient (CLI) | payer BC, OTHER ==
--- NOTE | 2023-08-25 13:03 | Ultrasound Report ---
PROCEDURE: Pelvic w/Transvaginal INDICATIONS: BMI 40 + WITH MENORRHAGIA TECHNIQUE: Real-time scanning was performed of the pelvic organs, with image documentation. Additional endovagi nal scanning was necessary due to incomplete visualization of the adnexal and endometrial structures by transabdominal scanning. COMPARISON: None. FINDINGS: Uterus: Uterus is anteverted and normal in size at 7.7 x 4.1 x 2 cm. The myometrium is heterogeneou s. The endometrium measures 12.88 mm in combined thickness. Ovaries: The right ovary measures 3.7 x 2.4 x 3.0 cm, with a calculated ovarian volume of 3.7 cc. T he left ovary is not visualized. There are fewer than 12 follicles in the right ovary. There is a sim ple right ovarian cyst which measures 2.5 x 1.8 x 2.1 cm. No adnexal masses are seen. No cystic lesi ons measuring greater than 3 cm. Other: No pathologic free abdominal or pelvic fluid. IMPRESSION: 1. Simple right ovarian cyst. This is within physiologic limits in a premenopausal female. In a postm enopausal female, annual sonographic surveillance is recommended. 2. Endometrial thickness is within normal limits in a premenopausal female. In a postmenopausal femal e, the endometrium is abnormally thickened and endometrial biopsy is recommended to exclude neoplasm or hypertrophy. Reviewed by: Casandra Travis MD on 08/25/2023 1:02 PM PST Approved by: Casandra Travis MD on 08/25/2023 1:02 PM PST Station ID: [id number]
== END 2023-08-23 19:03 | disposition home or self-care (01) ==
LOC: DI 19:02
PROVIDERS: ATTEND Obstetrics & Gynecology
DX: N92.0 Excessive and frequent menstruation with regular cycle (principal); N83.291 Other ovarian cyst, right side

== ENCOUNTER 2023-11-17 07:57 | Outpatient (CLI) | payer BC ==
[2023-11-17 08:33] LABS: CALCIUM 9.4 mg/dL (8.5-10.3); CREATININE 0.8 mg/dL (0.6-1.3); POTASSIUM 4.1 mmol/L (3.5-4.5)
[2023-11-17 08:42] LABS: MICROALBUMIN,URINE < 0.7 mg/dL
[2023-11-17 13:31] LABS: ESTIMATED AVERAGE GLUCOSE 114 mg/dL (70-100); HEMOGLOBIN A1c% 5.6 % (4.27-6.07)
== END 2023-11-17 07:58 | disposition home or self-care (01) ==
LOC: LAB 07:57
PROVIDERS: ATTEND Registered Nurse
DX: R73.9 Hyperglycemia, unspecified (principal)
CPT/HCPCS: 36415; 80048; 82043; 82570; 83036

== ENCOUNTER 2024-04-07 13:56 | Emergency (ER) | payer BC ==
--- NOTE | 2024-04-07 14:21 | ED Physician Documentation ---
History of Present Illness - Stated complaint Stated Complaint: LEFT FLANK PX, N/V - Chief complaint Chief Complaint: Abd Pain - History obtained from History obtained from: Patient - Additonal information Additional information: 54-year-old woman with history of recurrent renal colic presents with left flank pain starting this morning at 630. It feels like prior kidney stones. She is nauseous and vomiting with it. She has had many kidney stones in her life and did require an intervention while she was in the remote past. Last kidney stone was last July. 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 HEENT: Tonsil/Adenoidectomy - Present Medications Home Medications: Ambulatory Orders Medication Instructions Recorded Confirmed Gabapentin 300 mg PO TID PRN 08/15/17 04/07/24 Losartan Potassium 25 mg PO DAILY 05/22/22 04/07/24 Zolpidem Tartrate [Ambien] 10 mg PO HS PRN 05/22/22 04/07/24 Prazosin [Minipress] 2 mg PO QPM 06/19/22 04/07/24 metFORMIN [Glucophage] 500 mg PO DAILY 06/19/22 04/07/24 Promethazine [Phenergan] 25 mg PO Q6H PRN #10 tab 07/29/23 04/07/24 Topiramate 50 mg PO BID 07/29/23 04/07/24 Ibuprofen [Motrin] 800 mg PO Q8H PRN #30 tablet 04/07/24 Oxycodone HCl/Acetaminophen 1 - 2 each PO Q6H PRN #20 tablet 04/07/24 [Percocet 5-325 mg Tablet] Progesterone, Micronized 100 mg PO DAILY 04/07/24 04/07/24 [Prometrium] Spironolactone [Aldactone] 25 mg PO BID 04/07/24 04/07/24 Tamsulosin [Flomax] 0.4 mg PO DAILY #14 cap 04/07/24 - Allergies Allergies/Adverse Reactions: Allergies Allergy/AdvReac Type Severity Reaction Status Date / Time No Known Drug Allergies Allergy Verified 04/07/24 14:15 - Social History Does the pt smoke?: No Smoking Status: Never smoker Does the pt drink ETOH?: No Does the pt have substance abuse?: No - Immunizations Immunizations are current?: Yes - POLST Patient has POLST: No PD ED PE NORMAL - Vitals Vital signs reviewed: Yes - General General: Alert and oriented X 3, Other (She appears uncomfortable due to pain) - Abdomen Abdomen: Soft, Non tender - Back Back: No CVA TTP - Neuro Neuro: Alert and oriented X 3 Results - Vitals Vitals: Vital Signs - 24 hr 04/07/24 04/07/24 04/07/24 14:10 14:39 16:25 Temperature 36.8 C Heart Rate 63 67 71 Respiratory 18 20 20 Rate Blood Pressure 129/78 116/82 H 114/69 O2 Saturation 99 100 95 04/07/24 17:24 Temperature 36.6 C Heart Rate 65 Respiratory 15 Rate Blood Pressure 134/72 H O2 Saturation 97 Oxygen O2 Source Room air - Labs Labs: Laboratory Tests 04/07/24 04/07/24 04/07/24 14:22 14:22 16:16 WBC 12.3 H RBC 3.78 L Hgb 12.5 Hct 38.1 MCV 100.8 H MCH 33.1 H MCHC 32.8 RDW 12.0 Plt Count 254 MPV 9.9 Neut # (Auto) 10.8 H Lymph # (Auto) 1.0 L [place] # (Auto) 0.4 Eos # (Auto) 0.0 Baso # (Auto) 0.1 Absolute Nucleated RBC 0.00 Nucleated RBC % 0.0 Sodium 137 Potassium 4.2 Chloride 111 Carbon Dioxide 20 L Anion Gap 6.0 BUN 20 Creatinine 1.1 Estimated GFR (MDRD) 52 L Glucose 121 H Calcium 9.1 Total Bilirubin 0.3 AST 11 ALT 8 L Alkaline Phosphatase 48 Total Protein 7.1 Albumin 4.0 Globulin 3.1 Albumin/Globulin Ratio 1.3 Lipase 25 Urine Color YELLOW Urine Clarity CLEAR Urine pH 7.0 Ur Specific [place] 1.020 Urine Protein NEGATIVE Urine Glucose (UA) NEGATIVE Urine Ketones NEGATIVE Urine Occult Blood NEGATIVE Urine Nitrite NEGATIVE Urine Bilirubin NEGATIVE Urine Urobilinogen 0.2 (NORMAL) Ur Leukocyte Esterase NEGATIVE Ur Microscopic Review NOT INDICATED Urine Culture Comments NOT INDICATED - Rads (name of study) CT KUB demonstrates a 6 mm left distal ureteral stone with moderate upstream hydronephrosis. Relevant Findings:: Final report received, EMP independent interpretation of test PD Medical Decision Making - ED course ED course: 54-year-old woman with history of renal colic presents with symptoms consistent with same. Imaging demonstrates a 6 mm left distal ureteral stone with hydronephrosis. Urinalysis is not infected. She has a mild nonspecific leukocytosis. Chemistries show relatively unremarkable renal function. She was medicated initially with Dilaudid and Toradol with pain going from a 10 down to a 7 and a repeat dose of Dilaudid now with pain 5 and feeling comfortable at that level. She is started on Flomax and discussed with her that given the size of the stone it may not pass on its own and she may need urologic intervention as an outpatient. Departure - Departure Disposition: 01 Home, Self Care Clinical Impression: Renal colic Condition: Good Record reviewed to determine appropriate education?: Yes Instructions: ED Stone Renal W Colic Follow-Up: Graham Granda MD [Provider Admit Priv/Credential] - Prescriptions: Tamsulosin [Flomax] 0.4 mg PO DAILY #14 cap Ibuprofen [Motrin] 800 mg PO Q8H PRN #30 tablet PRN Reason: PAIN &/OR FEVER Oxycodone HCl/Acetaminophen [Percocet 5-325 mg Tablet] 1 - 2 each PO Q6H PRN #20 tablet PRN Reason: pain Comments: I sent your prescription electronically to [facility] in [place]. As discussed you have a 6 mm kidney stone in the distal left ureter. This may or may not pass on its own. It is reasonable to follow-up with our urologist, his numbers on this form, call for an appointment. Return for new or worsening symptoms or if you are pain is uncontrolled. I am prescribing a short course of narcotic pain medication for you. These are potentially dangerous and addictive medications that should be used carefully. These medications may constipate you. Take an bhka-php-lkwvcxr stool softener (docusate) twice daily with plenty of water while taking these medications. If you go 24 hours without a bowel movement, take wsdt-zks-lbxfjua miralax, per package instructions. Do not drink or drive while taking these medications. If you received narcotic or sedating medications while in the emergency department, do not drive for 24 hours. Store this medication in a safe, secure place and out of reach of children. It is a violation of federal law to give or sell this medication to another person or to use in a manner other than prescribed. The ED will not refill narcotic prescriptions, including prescriptions lost or stolen. To dispose of unwanted medications: 1. [facility] provides a drop box for medication in pill form only (no liquids) 8:00 am to 4:30 p.m. Saturday-Saturday in the lobby of the [facility] [place], [address] [place] [address]. Empty pills into ziplock bag before disposal. Call [phone] for information. 2.[employer] is a free service available to all [facility] residents. Go to [email or web address]/ Note that many narcotic pain relievers also contain Tylenol/acetaminophen. Please ensure that your total dose of acetaminophen from all sources does not exceed 3 g (3000 mg) per day. Forms: PCP List, Activity restrictions Discharge Date/Time: 04/07/24 17:26
[2024-04-07 14:28] LABS: BASOPHILS # (AUTO) 0.1 10^3/uL (0.0-0.1); BASOPHILS % (AUTO) 0.4 %; EOSINOPHILS % (AUTO) 0.3 %; HCT - HEMATOCRIT 38.1 % (37.0-47.0); HGB - HEMOGLOBIN 12.5 g/dL (12.0-16.0); MEAN CORPUSCULAR HEMOGLOBIN 33.1 pg (27.0-31.0); MEAN CORPUSCULAR HGB CONC 32.8 g/dL (32.0-36.0); MEAN CORPUSCULAR VOLUME 100.8 fL (81.0-99.0); MEAN PLATELET VOLUME 9.9 fL (7.9-10.8); MONOCYTES # (AUTO) 0.4 10^3/uL (0.0-1.0); MONOCYTES % (AUTO) 2.9 %; NEUTROPHILS # (AUTO) 10.8 10^3/uL (1.5-6.6); NEUTROPHILS % (AUTO) 88.2 %; PLT - PLATELET COUNT 254 10^3/uL (130-450); RED BLOOD COUNT 3.78 10^6/uL (4.20-5.40); WHITE BLOOD COUNT 12.3 x10^3/uL (4.8-10.8)
[2024-04-07 14:40] LABS: ALBUMIN/GLOBULIN RATIO 1.3 (1.0-2.2); BILIRUBIN,TOTAL 0.3 mg/dL (0.2-1.0); CALCIUM 9.1 mg/dL (8.5-10.3); CREATININE 1.1 mg/dL (0.6-1.3); POTASSIUM 4.2 mmol/L (3.5-4.5); TOTAL PROTEIN 7.1 g/dL (6.4-8.9)
[2024-04-07] MEDS: ONDANSETRON 4 MG/2 ML VIAL IVP STA (14:46)
[2024-04-07] MEDS: HYDROmorphone 1 MG/ML CARPUJECT IVP STA ×2 (14:46→16:20)
[2024-04-07] MEDS: KETOROLAC 15 MG/ML VIAL IVP STA (14:47)
[2024-04-07] MEDS: SODIUM CHLORIDE 0.9% 1,000 ML IV STA (15:11)
--- NOTE | 2024-04-07 15:38 | CT Report ---
PROCEDURE: Abdomen/Pelvis WO INDICATIONS: l flank pn TECHNIQUE: A CT scan of the abdomen and pelvis was performed without the use of intravenous contrast. Images we re recorded and evaluated at appropriate window settings. Reformats: coronal and sagittal. For radiat ion dose reduction, the following was used: automated exposure control, adjustment of mA and/or kV ac cording to patient size. COMPARISON: 07/29/2023. FINDINGS: Image quality: Diagnostic. Lower chest: Unremarkable. Liver: No contour-deforming mass. Gallbladder: Surgically absent. Biliary tree: No intrahepatic or extrahepatic dilation, accounting for age. Spleen: No splenomegaly. Pancreas: No pancreatic ductal dilation. Adrenals: No adrenal nodule. Kidneys and ureters: Obstructing 6 cm stone within the distal left ureter resulting in moderate left hydroureteronephrosis. No right renal stones or hydronephrosis. Stomach, bowel and peritoneum: No gastric or small bowel dilation. No abnormal wall thickening. No pa thologic free fluid. Normal appendix. Lymph nodes: No central or retroperitoneal adenopathy. Vessels: No infrarenal aortic aneurysm. Atherosclerotic vascular ossifications. Reproductive organs: Unremarkable. Bladder: Bladder wall thickness is normal, accounting for underdistention. No calcified bladder stone s. Pelvic lymph nodes: No adenopathy by size criteria. Bones: No aggressive osseous abnormality. Other: No significant ventral or inguinal hernia. IMPRESSION: Obstructing 6 mm stone within the distal left ureter resulting in moderate upstream hydroureteronephr osis. Reviewed by: James Duarte MD on 04/07/2024 3:37 PM PDT Approved by: James Duarte MD on 04/07/2024 3:37 PM PDT Station ID: [id number]
[2024-04-07 16:21] LABS: BILIRUBIN,URINE NEGATIVE (NEGATIVE); GLUCOSE, URINE (UA) NEGATIVE (NEGATIVE); KETONES,URINE (UA) NEGATIVE (NEGATIVE); LEUKOCYTE ESTERASE, URINE NEGATIVE (NEGATIVE); NITRITE,URINE NEGATIVE (NEGATIVE); OCCULT BLOOD,URINE NEGATIVE (NEGATIVE); PROTEIN,URINE NEGATIVE (NEGATIVE); UROBILINOGEN,URINE 0.2 (NORMAL) E.U./dL (NORMAL)
[2024-04-07 16:22] LABS: CLARITY,URINE CLEAR (CLEAR)
[2024-04-07 17:25] VITALS: BP 134/72; O2SAT 97
== END 2024-04-07 17:26 | disposition home or self-care (01) ==
LOC: ED 13:56
DX: N23 Unspecified renal colic (principal); N13.2 Hydronephrosis with renal and ureteral calculous obstruction; I10 Essential (primary) hypertension; Z87.442 Personal history of urinary calculi; Z79.899 Other long term (current) drug therapy
CPT/HCPCS: 36415; 74176; 80053; 81003; 83690; 85025; 96374; 96375; 96376; 99284; J1170; 81001; 87086

== ENCOUNTER 2024-04-17 09:05 | Day surgery (SDC) | payer BC ==
[2024-04-17] MEDS: LACTATED RINGERS 1,000 ML IV ONE (09:17)
[2024-04-17 09:27] LABS: HCG UR QUAL NEGATIVE
[2024-04-17] MEDS ORDERED: PROPOFOL 200 MG/20 ML VIAL IVP ONE (10:20)
[2024-04-17] MEDS ORDERED: fentaNYL 100 MCG/2 ML VIAL ONE (10:21)
[2024-04-17] MEDS ORDERED: MIDAZOLAM 2 MG/2 ML VIAL ONE (10:21)
--- NOTE | 2024-04-17 10:50 | ANESTHESIA ---
Pre-Anesthesia VS, & Labs - Diagnosis left ureteral stone - Procedure cystoscopy, rigid left ureteroscopy, laser lithotripsy, stent placement Vital Signs: Temp Pulse Resp BP Pulse Ox O2 Flow Rate 36.6 C 57 L 20 127/75 98 04/17/24 09:19 04/17/24 09:19 04/17/24 09:19 04/17/24 09:19 04/17/24 09:19 Height: 5 ft Weight (kg): 100.3 kg Body Mass Index: 43.2 BMI Classification: Morbidly Obese - NPO >8 hours - Is Patient ?: No - Lab Results Current Lab Results: Laboratory Tests 04/17/24 09:49: POC Whole Bld Glucose 99 Lab results reviewed: Yes Home Medications and Allergies Home Medications: Ambulatory Orders estradioL [Estradiol (Twice Weekly)] 1 patch TOP OAW 04/16/24 Gabapentin 300 mg PO TID PRN 08/15/17 Losartan Potassium 25 mg PO DAILY 05/22/22 Zolpidem Tartrate [Ambien] 5 mg PO HS PRN 05/22/22 Prazosin [Minipress] 2 mg PO QPM 06/19/22 metFORMIN [Glucophage] 500 mg PO DAILY 06/19/22 Topiramate 50 mg PO BID 07/29/23 Progesterone, Micronized [Prometrium] 100 mg PO DAILY 04/07/24 Spironolactone [Aldactone] 25 mg PO BID 04/07/24 estradioL [Estradiol (Twice Weekly)] 1 patch TOP OAW 04/16/24 Allergies/Adverse Reactions: Allergies Allergy/AdvReac Type Severity Reaction Status Date / Time No Known Drug Allergies Allergy Verified 04/17/24 09:56 Anes History & Medical History - Anesthetic History Anesthesia Complications: reports: No previous complications - Medical History Cardiovascular: reports: Hypertension Pulmonary: reports: Sleep apnea (Does not use CPAP) Gastrointestinal: reports: None Urinary: reports: Kidney stones Neuro: reports: None Musculoskeletal: reports: Other Endocrine/Autoimmune: reports: Other (PCOS/pre-diabetes) Blood Disorders: reports: None Skin: reports: None Smoking Status: Never smoker Psychosocial: reports: No issues indicated History of Cancer?: No - Surgical History General: reports: Cholecystectomy Eyes Ears Nose Throat (EENT): reports: Tonsil/Adenoidectomy Urologic: reports: Ureterolithotomy (stones) Gynecologic: reports: Tubal ligation Orthopedic: reports: Amputation Exam General: Alert, Oriented x3, Cooperative, No acute distress Dental: Partials Upper, Other (multiple missing) Mouth Openin Fingerbreadth Neck Mobility: Normal Mallampati classification: III Thyromental Distance: 4-6 cm Mental/Cognitive Status: Alert/Oriented X3, Normal for patient Plan Anesthesia Type: General Consent for Procedure(s) Verified and Reviewed: Yes Code Status: Attempt Resuscitation ASA classification: 3-Severe systemic disease Is this case an emergency?: No
[2024-04-17] MEDS ORDERED: HYDROmorphone 0.5 MG/0.5 ML SYRINGE IVP PRN (10:51)
[2024-04-17] MEDS ORDERED: fentaNYL 100 MCG/2 ML VIAL IVP PRN (10:51)
[2024-04-17] MEDS ORDERED: MORPHINE 2 MG/ML CARPUJECT IVP PRN (10:51)
[2024-04-17] MEDS ORDERED: NALOXONE 0.4 MG/ML VIAL IVP PRN (10:51)
[2024-04-17] MEDS ORDERED: ONDANSETRON 4 MG/2 ML VIAL IVP PRN ×2 (10:51→11:34)
[2024-04-17] MEDS ORDERED: ATROPINE ABBOJECT 1 MG/10 ML SYRINGE IVP PRN (10:51)
[2024-04-17] MEDS ORDERED: LIDOCAINE 2% URO-JET 5 ML SYRINGE UR ONE (10:59)
[2024-04-17] MEDS ORDERED: LACTATED RINGERS 1,000 ML IV SCH (11:00)
[2024-04-17] MEDS ORDERED: ROCURONIUM 50 MG/5 ML VIAL ONE (11:21)
[2024-04-17] MEDS ORDERED: SUGAMMADEX 200 MG/2 ML VIAL IVP ONE ×2 (11:28→11:29)
[2024-04-17] MEDS ORDERED: KETOROLAC 30 MG/ML VIAL ONE (11:29)
[2024-04-17] MEDS: LIDOCAINE 2% URO-JET 5 ML SYRINGE UR ONE (11:30)
[2024-04-17] MEDS ORDERED: ONDANSETRON 4 MG/2 ML VIAL ONE (11:31)
[2024-04-17] MEDS ORDERED: HYDROcod/ACETAM 5/325 MG TABLET PO PRN (11:34)
--- NOTE | 2024-04-17 11:34 | Discharge Plan ---
Discharge Plan Problem Reviewed?: Yes Disposition: Home, Self Care Condition: Good Diet: Regular Activity Restrictions: No Restrictions Shower Restrictions: No Driving Restrictions: No Instruction Topics: Stents Ureteral Additional Instructions or Follow Up instructions: You will be contacted for follow-up with Dr. Granda in 3 months time No Smoking: If you smoke, Please STOP! Call for help. Follow-up with: Graham Granda MD [Provider Admit Priv/Credential] -
--- NOTE | 2024-04-17 11:38 | OPERATIVE REPORT ---
Operative Report - General Procedure Date: 04/17/24 Planned Procedure: Cystoscopy, left ureteroscopy, laser lithotripsy, stent Pre-Op Diagnosis: left ureteral stone Procedure Performed: Cystoscopy, left ureteroscopy, basket stone extraction, stent Post Op Diagnosis: left ureteral stone - Procedure Note Primary Surgeon: Jesus Alberto Anesthesia Provider: CHARLIE Jefferson Anesthesia Technique: General LMA Pathology: left ureteral stone Estimated Blood Loss (mL): 0 Findings: left distal/uvj 5mm stone, oblong, removed with basket stent left on string - Other Other Information/Narrative: After informed consent was obtained the patient was brought to the OR and laid in the supine position. The patient was anesthetized per anesthesia protocols and prepped draped in usual sterile fashion in the dorsolithotomy position. A formal timeout was performed reconfirmed the patient, procedure and laterality. A 22 Canadian cystoscope was advanced easily to urinary bladder. Bladder inspected and full and there were no masses, lesions or other concerns. A sensor wire was placed up the left ureter under fluoroscopic guidance into the kidney. A second sensor wire was used to railroad a short semirigid ureteroscope into the left UVJ. Immediately began upon a smooth round yellow/green stone. This was about 5 mm in size and corresponded to the stone seen on imaging. Using a 1.9 Canadian basket we grasped the stone and it was able to be brought through the UVJ without resistance and was sent for analysis. A 6 Canadian 22 cm stent was placed with good curling noted in the kidney and good curling noted in the bladder. The bladder was emptied and Uro-Jet was placed. The stent was left on a string and was taped using a Tegaderm to her lower abdomen The patient tolerated the procedure well and was brought to PACU without further incident. She will remove the stent on Saturday and follow-up in 3 months
[2024-04-17] MEDS: LACTATED RINGERS 500 ML IV ONE (11:42)
[2024-04-17] MEDS: HYDROcod/ACETAM 5/325 MG TABLET ONE (12:15)
--- NOTE | 2024-04-17 12:39 | ANESTHESIA POST OP EVALUATION ---
Anesthesia Post Eval - Post Anesthesia Eval Vitals: Last Vital Signs Temp 36.5 C 04/17/24 12:10 Pulse 60 04/17/24 12:10 Resp 14 04/17/24 12:10 BP 123/72 04/17/24 12:10 Pulse Ox 98 04/17/24 12:10 O2 Flow Rate CV Function Including HR & BP: Stable Pain Control: Satisfactory Nausea & Vomiting: Negative Mental Status: Baseline Respiratory Status: Airway Patent Hydration Status: Satisfactory Anesthesia Complications: None
[2024-04-17 13:06] VITALS: BP 120/84; O2SAT 97
== END 2024-04-17 09:06 | disposition home or self-care (01) ==
LOC: SDS 09:05
PROVIDERS: ATTEND Urology
DX: N20.1 Calculus of ureter (principal); E66.01 Morbid (severe) obesity due to excess calories; R73.03 Prediabetes; Z68.41 Body mass index [BMI] 40.0-44.9, adult; G47.30 Sleep apnea, unspecified
CPT/HCPCS: 52320; 52332; 81025; 82365; A9270; C1758; C2617; J7120